=== PATIENT | female | born 1945 | race Caucasian/White ===

== ENCOUNTER 2016-12-12 16:55 | Inpatient (IN) ==
--- NOTE | 2016-12-12 17:27 | Emergency Department Report ---
General Adult HPI - General Stated complaint: [facility] Clearance Time Seen by Provider: 12/12/16 17:06 Source: patient, old records reviewed Mode of arrival: ambulatory Limitations: other (dementia) - History of Present Illness HPI narrative: 71-year-old female presents to the emergency department with the chief complaint of paranoia, agitation, and hallucinations. Patient has been having increasing symptoms rapidly over the past several months. Patient was seen and evaluated at [facility] on 11/28/2016 with a negative evaluation including head CT. [facility] management. She denies any pain or discomfort. Patient is agitated and history is limited due to this. - Related Data Home Medications Medication Instructions Recorded Confirmed Carbamide Peroxide Ear Drops 2 drops EACH EAR DAILY PRN 12/12/16 12/12/16 [Debrox] LORazepam [Ativan] 0.5 mg PO Q4H PRN 12/12/16 12/12/16 Quetiapine [Seroquel] 25 mg PO BIDLS 12/12/16 12/12/16 Quetiapine [Seroquel] 50 mg PO HS 12/12/16 12/12/16 Sertraline HCl [Zoloft] 50 mg PO QAM 12/12/16 12/12/16 Allergies Allergy/AdvReac Type Severity Reaction Status Date / Time strawberry Allergy Verified 12/12/16 17:18 Review of Systems Limitations: ROS unobtainable due to patient's medical condition PFSH Cognitive Impairment, Mood disorder, Paranoia Family History: Reviewed and Noncontributory. - Social History Smoking status: Former smoker Substance use type: does not use Alcohol intake frequency: does not drink Physical Exam - Limitations Limitations: other (Dementia) - General General appearance: alert, in no apparent distress - Normal Exams: Head:: Normocephalic without trauma Eyes:: Pupils are PERRLA w/ EOMI, No scleral icterus, irritation, or foreign bodies noted ENMT:: No facial trauma, nasal exudates, pharyngeal erythema, or exudates are noted Dental: No fractured, loose, or missing teeth noted Neck:: Full range of motion, without adenopathy, JVD, bruits or thyromegaly Chest/Respirations:: Clear all wood, with good airflow, and symmetry bilaterally Cardiovascular:: Regular rate and rhythm, without murmur or gallop, Pulses 2+ all extremities, capillary refill, <2 seconds all extremities Abdomen:: Bowel sounds positive, soft, non-tender, non-distended, no hepatosplenomegaly, masses or bruits noted Lymphatic:: No lymphadenopathy, or lymphedema noted Musculoskeletal:: No tenderness, or deformity noted, good range of motion, all extremities Integumentary:: No rashes, hives, or bruising noted, hair and nails, without abnormality Neurological:: Patient is alert (Alert and oriented x 1-2. No focal deficit. Does not answer most questions. ) Psychiatric:: Patient exhibits (Agitated. ) Course Vital Signs Blood Pressure 173/81 H 12/12/16 16:55 Temperature 98.0 F 12/14/16 15:40 Pulse Rate 105 H 12/14/16 15:40 Respiratory Rate 18 12/14/16 15:40 Blood Pressure 146/79 H 12/14/16 15:40 Pulse Oximetry 98 12/14/16 15:40 Medical Decision Making - [facility] Narrative Medical decision making narrative: Patient is frequently pacing and has difficulty remaining still. She is given Haldol 5 mg IM 1 after discussion with her medical power of ip technology transactions attorney vernon Moya. Vernon Moya is in agreement with the current plan of management. Patient will have a repeat EKG, chest x-ray, UA and any other testing deemed medically necessary in generations once the sedation has taken effect and patient is more calm. Full set of vital signs will be completed there as well when patient is more co-operative. The patient's slightly elevated blood pressure is felt to be secondary to agitation. Patient is accepted by Dr. Pan in generations and is in agreement with the current plan of management and will complete the workup as indicated in generations. Family is in agreement with the current plan of management. Patient is admitted to the hospital in improved condition. No further orders from accepting physician who is in agreement with the current plan of management. - Differential Diagnosis psychoses, anxiety, metabolic disorder, UTI - Lab Data Result diagrams: 12/12/16 18:17 12/12/16 18:17 Lab Results 12/12/16 12/12/16 12/12/16 Range/Units 18:17 18:17 18:17 WBC 6.5 (4.5-11.0) T/MM3 RBC 4.69 (4.00-5.20) M/MM3 Hgb 14.1 (12-16) GM/DL Hct 42.4 (36-46) % MCV 90.4 (80-100) UM3 MCH 30.1 (26-34) UUG MCHC 33.3 (31-37) GM/DL RDW Std Deviation 42.1 (36.9-50.2) FL Plt Count 237 (130-400) T/MM3 MPV 10.4 (9.4-12.4) UM3 Immature Gran % (Auto) 0.2 (0.0-0.5) % Neut % (Auto) 67.7 H (33-66) % Lymph % (Auto) 24.8 (23-45) % [place] % (Auto) 5.1 (0-9.0) % Eos % (Auto) 1.7 (0-4) % Baso % (Auto) 0.5 (0-2) % Neut # (Auto) 4.4 (1.8-7.7) T/MM3 Lymph # (Auto) 1.6 (1-4.8) T/MM3 [place] # (Auto) 0.3 (0-0.8) T/MM3 Eos # (Auto) 0.1 (0-0.5) T/MM3 Baso # (Auto) 0.0 (0-0.2) T/MM3 Abs Immat Gran (auto) 0.01 (0.00-0.03) T/MM3 Turbidity < 20 (0-20) Sodium 138 (134-144) MEQ/L Potassium 3.7 (3.6-5) MEQ/L Chloride 99 (98-107) MEQ/L Carbon Dioxide 27 (22-30) MEQ/L Anion Gap 12 (5-15) MEQ/L BUN 13.0 (7-17) MG/DL Creatinine 0.7 (0.7-1.2) MG/DL GFR Calculation 82 BUN/Creatinine Ratio 19 (6-26) RATIO Glucose 100 (65-110) MG/DL Calculated Osmolality 266 (261-280) MOSM/KG Calcium 9.2 (8.4-10.2) MG/DL Total Bilirubin 0.70 (0.20-1.30) MG/DL Icterus Index < 2 (0-7) AST 49 H (14-36) U/L ALT 54 H (9-52) U/L Alkaline Phosphatase 66 (38-126) U/L Troponin I 0.035 (0-0.12) ng/ml Total Protein 7.8 (6.3-8.2) G/DL Albumin 4.5 (3.5-5.0) G/DL Globulin 3.3 (2.4-3.6) G/DL Albumin/Globulin Ratio 1.4 (1.1-2.2) RATIO Prealbumin 15.9 L (17.6-36.0) MG/DL Specimen Hemolysis < 15 (0-25) - Radiology Data CXR - To be obtained in [facility] when patient is able to comply. - EKG Data EKG #1 EKG results narrative: Sinus tachycardia. Frequent PVC. No STEMI. Heart rate 106 bpm. Disposition Clinical Impression: Acute psychosis Disposition: 64 To [facility] Condition: Stable Time of Disposition: 18:30 (Admit. Dr. Pan. ) - Seen By: physician
[2016-12-12] MEDS ORDERED: HALOPERIDOL 5 MG/ML INJECTION IM ONE (17:59)
[2016-12-12] MEDS ORDERED: CARBAMIDE PEROXIDE 6.5% EAR DROPS 15ml EACH EAR PRN (18:40)
[2016-12-12 21:45] VITALS: BMI 21.5
[2016-12-12] MEDS: QUETIAPINE 50 MG TABLET PO SCH (23:26)
--- NOTE | 2016-12-13 07:47 | History & Physical Report ---
<RanchoShruthi D - Last Filed: 12/13/16 07:43> History of Present Illness Date: 12/13/16 Chief complaint: paranoia HPI: Margie Zhang is a 71 y/o woman admitted to [facility] on 12/12/16 for further evaluation and treatment of increasing paranoid behavior with hallucinations, thinking people are going to hurt her and that staff was stealing her things. The patient was markedly confused, unable to be redirected, and was therefore unable to participate in the interview. Per chart review, she's also had decreased appetite, pacing, and has been exit seeking. She currently resides in an assisted living memory care unit (admitted there on 12/03/16). Her memory reportedly has been failing at a remarkable rate. She was assessed at [facility] on where w/u was negative with WBC of 6.9, hgb 14.2, Na 136, K 3.4, BUN 14, Cr 0.79, ALT 18, AST 25, TSH 1.03, neg UA, EKG sinus tach with occ PVC, negative CXR and negative CT (with exception of chronic small vessel changes). Prior to this hospitalization she was not on any medications at home. The patient was screened at [facility] on 12/12/16 and d/t extreme agitation received Haldol 5 mg IM. Repeat labs here were normal except for mildly elevated LFTs. Since that time she was sleeping comfortably, but she awakened easily this morning. She was in no acute distress, spoke quickly, and needed very frequent redirection. She was unable to answer questions - most of her response was "OK" to ROS. She was slightly unsteady on her feet, and became slightly upset when staff helped her get situated on the toilet. Review of Systems ROS unobtainable: due to mental status PFSH JUNIOR Dementia Surgical History: Deny any surgical history Family History: a parent had dementia - Social History Smoking status: Former smoker (distant use) Alcohol intake frequency: holidays/special occasions only Current occupational status: retired Previous occupational history: teacher Current residence: Assisted Living Social history: PCP - Dr. Hammad Gutierrez Used to walk "7 miles" per day Medications Home Medications Medication Instructions Recorded Confirmed Type Carbamide Peroxide Ear Drops 2 drops EACH EAR DAILY PRN 12/12/16 12/12/16 History [Debrox] LORazepam [Ativan] 0.5 mg PO Q4H PRN 12/12/16 12/12/16 History Quetiapine [Seroquel] 25 mg PO BIDLS 12/12/16 12/12/16 History Quetiapine [Seroquel] 50 mg PO HS 12/12/16 12/12/16 History Sertraline HCl [Zoloft] 50 mg PO QAM 12/12/16 12/12/16 History Allergies Allergy/AdvReac Type Severity Reaction Status Date / Time strawberry Allergy Verified 12/12/16 17:18 Exam Vital Signs: Temperature 98.0 F 12/12/16 20:17 Pulse Rate 97 12/12/16 21:30 Respiratory Rate 18 12/12/16 21:30 Blood Pressure 168/71 H 12/12/16 20:17 Pulse Oximetry 97 12/12/16 21:30 Height/Weight/BMI: Height 1.57 m Weight 53.5 kg Body Mass Index 21.5 - Constitutional Present: well nourished, well developed, thin - Routine HEENT Exam Eye: Present: PERRL. Absent: conjunctival icterus, scleral injection ENT: Present: oropharynx clear - Routine Neck Exam Present: supple - Routine Respiratory Exam Present: CTA bilaterally - Routine Cardiovascular Exam Present: RRR, S1, S2 - Routine Abdominal Exam Present: soft, normoactive bowel sounds, non tender - Routine Extremities Exam Present: no edema - Routine Skin Exam Present: intact, dry, warm - Routine Neurological Exam Present: alert, CN II-XII intact (grossly), moving all extremities, normal speech. Absent: oriented X3 (self), facial asymmetry, tremors - Routine Psychiatric Exam Absent: normal thought process Results - Labs CBC & Chem 7: 12/12/16 18:17 12/12/16 18:17 Assessment and Plan (1) Acute psychosis Current visit: Yes Status: Acute Assessment and Plan: IMPRESSION Acute psychosis - Paranoia with delusions Mildly elevated LFTs Elevated BP (poss r/t agitation) Dementia JUNIOR PLAN Agree with admission. Labs reviewed and compared with outside records - mild acute elevations in AST/ ALT - monitor - could be r/t med effect since all meds are new to her. BP was elevated last night, though this is when she was agitated - monitor this over the next 24-48 hours to see if she might need an antihypertensive. Check Vit B12 and prealbumin. Provide safe/supportive environment. Medically stable for [facility] activities. code status in chart - DNR - will need to clarify with family. Resuscitation Status: Do Not Resuscitate Hospital Course Summary Disclaimer: The visit summary below is not to be considered part of the above Progress Note. Hospital Course: 12/13/16 08:03 IMPRESSION Acute psychosis - Paranoia with delusions Mildly elevated LFTs Elevated BP (poss r/t agitation) Dementia JUNIOR PLAN Agree with admission. Labs reviewed and compared with outside records - mild acute elevations in AST/ ALT - monitor - could be r/t med effect since all meds are new to her. BP was elevated last night, though this is when she was agitated - monitor this over the next 24-48 hours to see if she might need an antihypertensive. Check Vit B12 and prealbumin. Provide safe/supportive environment. Medically stable for [facility] activities. code status in chart - DNR - will need to clarify with family. <Edgar Daniels IV - Last Filed: 12/13/16 18:07> History of Present Illness Date: 12/13/16 [facility] Patient Stated Medical History Dementia Yes Exam Vital Signs: Temperature 98.1 F 12/13/16 16:00 Pulse Rate 57 L 12/13/16 16:00 Respiratory Rate 18 12/13/16 16:00 Blood Pressure 195/85 H 12/13/16 16:00 Pulse Oximetry 97 12/13/16 16:00 Height/Weight/BMI: Height 5 ft 2 in Weight 53.5 kg Body Mass Index 21.5 Results - Labs CBC & Chem 7: 12/12/16 18:17 12/12/16 18:17 Assessment and Plan (1) Acute psychosis Current visit: Yes Status: Acute Assessment and Plan: I have independently interviewed and examined the patient. I have reviewed the medical record. The plan has been discussed and formulated with LUBRICATOR GRANULATOR as above with the additions below. This is a 71-year-old woman paranoid delusions. She got 5 mg haldol in the ER last night and slept, but has been very active and difficult to direct since awakening, per nurse. Patient did not want to be examined or answer questions. Information is obtained from staff and medical record. The patient wanted staff to get her a phone book. Nurse says she has been complaining that staff is stealing from her. This is a similar to her complaint about the [facility] memory care unit she was admitted to 12/03/16. Nurse says patient's d-i-l has called and says the patient had not seen a doctor in 30 years and that the patient's protected her by keeping family away when she was not doing well. Patient is well developed, well nourished. No rashes noted. No edema present. Her gait is unsteady - nurse says it is worse b/c pt just got 25 of Seroquel. Recheck LFTs in a few days. UA is pending. May need to straight cath. Patient's BP has been variable. This may be d/t agitation. Monitor. Agree with admission to [facility]. Hospital Course Summary Disclaimer: The visit summary below is not to be considered part of the above Progress Note.
[2016-12-13] MEDS: SERTRALINE 50 MG TABLET PO SCH (08:58)
[2016-12-13] MEDS: LORazepam 0.5 MG TABLET PO PRN (10:23)
[2016-12-13] MEDS: HALOPERIDOL 0.5 MG TABLET PO PRN (10:23)
[2016-12-13] MEDS ORDERED: QUETIAPINE 25 MG TABLET PO SCH (12:00)
--- NOTE | 2016-12-13 12:40 | 24 Hour Neuropsychiatic Eval ---
Date of Admission: 12/12/16 18:38 Chief complaint: "I'm fine" History of Present Illness: HPI: 71 Y/O CF with a hx of dementia sent from [place] for increasing confusion and paranoia. Reportedly pt was irritable and aggressive at times and believing things were being stolen from her. Pt recently was placed in memory care and nursing reports family stated her memory has been failing for some time. On face to face the pt is pleasant but pacing. She is only oriented x 1 and is not able or willing to participate in the interview. PSYCH ROS: PT is not able to participate in the interview. She does not appear to be in any distress but is pacing. PAST PSYCH: Unclear at this time. Pt was admitted on Seroquel and Zoloft. Family reports she has not seen a doctor for many years COUNT INCLUDES THE [facility] Patient Stated Medical History Dementia Yes Surgical History: Deny any surgical history - Social History Smoking status: Former smoker (distant use) Current residence: Assisted Living Review of Systems ROS unobtainable: due to mental status Mental Status Exam Vitals: Last Vital Signs Temp 98.2 F 12/13/16 08:00 Pulse 103 H 12/13/16 08:00 Resp 16 12/13/16 08:00 BP 138/93 H 12/13/16 08:00 Pulse Ox 99 12/13/16 08:00 Height: 1.57 m Weight: 53.5 kg - Mental Status Exam Muscle Strength/Tone: Normal Dressing: Casual Grooming: Good Attitude: Guarded Motor Activity: Normal Eye Contact: Poor Speech: Slowed Volume: Soft Rhythm: Mumbled Orientation: Oriented to person Mood: Neutral Affect: Anxious Rate of Thoughts: Delayed Thought Organization: Confused Associations: Flight of Ideas Abstract Reasoning: Poor abstract reasoning Thought Content: Paranoia Perception/Psychotic: Perception Normal Language: Naming Impaired Fund of Knowledge: Poor fund of knowledge Memory: Poor-immediate, Poor-recent, Poor-remote Suicidal Ideation: None Homicidal Ideation: None Insight: Poor Judgement: Poor Impulse Control: Poor - Laboratory Result Diagrams: 12/12/16 18:17 12/12/16 18:17 Assessment and Plan (1) Major neurocognitive disorder Problem details: with behavioral disturbance most likely Alzheimers Type Current visit: Yes Status: Acute Continue to evaluate and stabilize. Continue home meds. Collateral from family. Will collect UA
[2016-12-13] MEDS ORDERED: QUETIAPINE 25 MG TABLET PO ONE (16:38)
[2016-12-13] MEDS: QUETIAPINE 25 MG TABLET PO SCH (16:40)
[2016-12-13] MEDS: HALOPERIDOL 5 MG/ML INJECTION IM PRN (19:30)
[2016-12-13] MEDS: QUETIAPINE 50 MG TABLET PO SCH (19:47)
[2016-12-14] MEDS: QUETIAPINE 25 MG TABLET PO SCH ×2 (08:19→14:37)
[2016-12-14] MEDS: SERTRALINE 50 MG TABLET PO SCH (08:19)
[2016-12-14] MEDS: HALOPERIDOL 0.5 MG TABLET PO PRN ×2 (08:20→21:35)
--- NOTE | 2016-12-14 12:18 | Neuropsych Progress Note ---
[facility] Subjective Date: 12/14/16 - Sujective/Severity of Illness Medications: Carbamide Peroxide (Debrox) 2 drops EACH EAR DAILY PRN PRN Reason: PRN orders Cephalexin HCl (Keflex) 500 mg PO TID [facility] Stop: 12/17/16 14:59 Haloperidol (Haldol) 0.5 mg PO Q6H PRN PRN Reason: Extreme agitation Last Admin: 12/14/16 08:20 Dose: 0.5 mg Haloperidol Lactate (Haldol) 0.5 mg IM Q6H PRN PRN Reason: Extreme agitation Last Admin: 12/13/16 19:30 Dose: 0.5 mg Lorazepam (Ativan) 0.5 mg PO Q6H PRN PRN Reason: Extreme agitation Last Admin: 12/13/16 10:23 Dose: 0.5 mg Lorazepam (Ativan Inj) 0.5 mg IM Q6H PRN PRN Reason: Extreme agitation Last Admin: 12/13/16 19:30 Dose: 0.5 mg Quetiapine Fumarate (Seroquel) 50 mg PO HS [facility] Last Admin: 12/13/16 19:47 Dose: 50 mg Quetiapine Fumarate (Seroquel) 25 mg PO 0900,1500 [facility] Last Admin: 12/14/16 08:19 Dose: 25 mg Sertraline HCl (Zoloft) 50 mg PO QAM [facility] Last Admin: 12/14/16 08:19 Dose: 50 mg Subjective: Pt seen and chart examined. Nursing reports patient was given Haldol and Ativan last night IM as she was pacing and exit seeking and was difficult to redirect. Slept well and has a good appetite. On face to face the pt is confused. She is only oriented to self. She is pacing and is not able to answer questions. She does not appear to be in any pain. Tolerating meds Start Time: 11:15 Stop Time: 11:30 Mental Status Exam Vitals: Last Vital Signs Temp 98.2 F 12/14/16 08:00 Pulse 105 H 12/14/16 08:00 Resp 16 12/14/16 08:00 BP 137/86 12/14/16 08:00 Pulse Ox 92 12/14/16 08:00 Height: 1.57 m Weight: 53.5 kg - Mental Status Exam Muscle Strength/Tone: Normal Dressing: Casual Grooming: Good Attitude: Guarded Motor Activity: Normal Eye Contact: Poor Speech: Slowed Volume: Soft Rhythm: Mumbled Orientation: Oriented to person Mood: Neutral Rate of Thoughts: Delayed Thought Organization: Confused Associations: Flight of Ideas Abstract Reasoning: Poor abstract reasoning Thought Content: Paranoia Perception/Psychotic: Perception Normal Language: Naming Impaired Fund of Knowledge: Poor fund of knowledge Memory: Poor-immediate, Poor-recent, Poor-remote Suicidal Ideation: None Homicidal Ideation: None Insight: Poor Judgement: Poor Impulse Control: Poor - Laboratory Result Diagrams: 12/12/16 18:17 12/12/16 18:17 Laboratory Results - last 24 hr 12/13/16 18:09 Ur Collection Type Urine, catheter Urine Color Yellow Urine Clarity Clear Urine pH 6.0 Ur Specific [place] 1.010 L Urine Protein Negative Urine Glucose (UA) Negative Urine Ketones 2+ A Urine Occult Blood Trace-lysed Urine Nitrate Negative Urine Bilirubin Negative Urine Urobilinogen 0.2 Ur Leukocyte Esterase 2+ A Urine RBC 1-3 Urine WBC 5-10 H Ur Squamous Epith Cells 10-20 Ur Transition Epith Cell 0-1 Urine Bacteria 1+ H Ur Culture Indicated? Cult not indicated Assessment and Plan (1) Major neurocognitive disorder Problem details: with behavioral disturbance most likely Alzheimers Type Current visit: Yes Status: Acute Hospital Course Summary Disclaimer: The visit summary below is not to be considered part of the above Progress Note. Hospital Course: 12/13/16 08:03 IMPRESSION Acute psychosis - Paranoia with delusions Mildly elevated LFTs Elevated BP (poss r/t agitation) Dementia JUNIOR PLAN Agree with admission. Labs reviewed and compared with outside records - mild acute elevations in AST/ ALT - monitor - could be r/t med effect since all meds are new to her. BP was elevated last night, though this is when she was agitated - monitor this over the next 24-48 hours to see if she might need an antihypertensive. Check Vit B12 and prealbumin. Provide safe/supportive environment. Medically stable for [facility] activities. code status in chart - DNR - will need to clarify with family. 12/14/16 12:17 Remains confused and agitated at times. Continue current care and will discuss with family use of Depakote
[2016-12-14] MEDS ORDERED: CEFTRIAXONE 1 G INJECTION IM ONE (14:22)
[2016-12-14] MEDS ORDERED: LIDOCAINE 1% (10mg/ml) 2mL INJ PF SDV ID ONE (15:01)
[2016-12-14] MEDS: QUETIAPINE 50 MG TABLET PO SCH ×2 (18:24→21:24)
[2016-12-14] MEDS: LORazepam 0.5 MG TABLET PO PRN (21:35)
[2016-12-15] MEDS: SERTRALINE 50 MG TABLET PO SCH (08:15)
[2016-12-15] MEDS: QUETIAPINE 25 MG TABLET PO SCH ×2 (08:15→15:35)
[2016-12-15] MEDS: HALOPERIDOL 0.5 MG TABLET PO PRN (08:18)
[2016-12-15] MEDS ORDERED: INFLUENZA VAC High Dose 2017-18 (Fluzone HD*) (>=65yo) 0.5ml IM ONE (13:24)
[2016-12-15] MEDS ORDERED: PNEUMOCOCCAL 13 VACCINE 0.5ml INJECTION IM ONE (13:24)
[2016-12-15] MEDS ORDERED: INFLUENZA VAC. INJ. ADMIN CHARGE INJ ONE (15:08)
[2016-12-15] MEDS ORDERED: PNEUMOCOCCAL VAC ADMIN CHARGE INJ ONE (15:09)
[2016-12-15] MEDS: HALOPERIDOL 5 MG/ML INJECTION IM PRN (17:37)
[2016-12-15] MEDS: QUETIAPINE 50 MG TABLET PO SCH (18:55)
--- NOTE | 2016-12-15 21:17 | Neuropsych Progress Note ---
[facility] Subjective Date: 12/15/16 - Sujective/Severity of Illness Medications: Carbamide Peroxide (Debrox) 2 drops EACH EAR DAILY PRN PRN Reason: For ear wax removal Haloperidol (Haldol) 0.5 mg PO Q6H PRN PRN Reason: Extreme agitation Last Admin: 12/15/16 08:18 Dose: 0.5 mg Haloperidol Lactate (Haldol) 0.5 mg IM Q6H PRN PRN Reason: Extreme agitation Last Admin: 12/15/16 17:37 Dose: 0.5 mg Lorazepam (Ativan) 0.5 mg PO Q6H PRN PRN Reason: Extreme agitation Last Admin: 12/14/16 21:35 Dose: 0.5 mg Lorazepam (Ativan Inj) 0.5 mg IM Q6H PRN PRN Reason: Extreme agitation Last Admin: 12/15/16 17:36 Dose: 0.5 mg Metoprolol Tartrate (Lopressor) 12.5 mg PO BIDWM [facility] Last Admin: 12/15/16 18:47 Dose: 12.5 mg Quetiapine Fumarate (Seroquel) 50 mg PO HS [facility] Last Admin: 12/15/16 18:55 Dose: 50 mg Quetiapine Fumarate (Seroquel) 25 mg PO 0900,1500 [facility] Last Admin: 12/15/16 15:35 Dose: 25 mg Sertraline HCl (Zoloft) 50 mg PO QAM [facility] Last Admin: 12/15/16 08:15 Dose: 50 mg Subjective: Pt seen and chart examined. Nursing reports pt continues to pace and is active and is difficult to redirect at times. On face to face the pt remains confused. She is seen pacing and is only oriented to self. She does not respond to questions. She does not appear to be in any pain. Tolerating meds Start Time: 17:15 Stop Time: 17:30 Mental Status Exam Vitals: Last Vital Signs Temp 98.7 F 12/15/16 08:00 Pulse 98 12/15/16 08:00 Resp 16 12/15/16 08:00 BP 157/91 H 12/15/16 08:00 Pulse Ox 97 12/15/16 08:00 Height: 1.57 m Weight: 53.5 kg - Mental Status Exam Muscle Strength/Tone: Normal Dressing: Casual Grooming: Good Attitude: Guarded Motor Activity: Normal Eye Contact: Poor Speech: Slowed Volume: Soft Rhythm: Mumbled Orientation: Oriented to person Mood: Neutral Rate of Thoughts: Delayed Thought Organization: Confused Associations: Flight of Ideas Abstract Reasoning: Poor abstract reasoning Thought Content: Paranoia Perception/Psychotic: Perception Normal Language: Naming Impaired Fund of Knowledge: Poor fund of knowledge Memory: Poor-immediate, Poor-recent, Poor-remote Suicidal Ideation: None Homicidal Ideation: None Insight: Poor Judgement: Poor Impulse Control: Poor - Laboratory Result Diagrams: 12/12/16 18:17 12/12/16 18:17 Assessment and Plan (1) Major neurocognitive disorder Problem details: with behavioral disturbance most likely Alzheimers Type Current visit: Yes Status: Acute Hospital Course Summary Disclaimer: The visit summary below is not to be considered part of the above Progress Note. Hospital Course: 12/13/16 08:03 IMPRESSION Acute psychosis - Paranoia with delusions Mildly elevated LFTs Elevated BP (poss r/t agitation) Dementia JUNIOR PLAN Agree with admission. Labs reviewed and compared with outside records - mild acute elevations in AST/ ALT - monitor - could be r/t med effect since all meds are new to her. BP was elevated last night, though this is when she was agitated - monitor this over the next 24-48 hours to see if she might need an antihypertensive. Check Vit B12 and prealbumin. Provide safe/supportive environment. Medically stable for [facility] activities. code status in chart - DNR - will need to clarify with family. 12/14/16 12:17 Remains confused and agitated at times. Continue current care and will discuss with family use of Depakote 12/15/16 21:17 Remains confused. Increase Seroquel to 50mg PO TID.
[2016-12-16] MEDS: QUETIAPINE 50 MG TABLET PO SCH ×4 (03:35→19:26)
[2016-12-16] MEDS: SERTRALINE 50 MG TABLET PO SCH (08:10)
--- NOTE | 2016-12-16 09:29 | Progress Note ---
- Date 12/16/16 Subjective: Margie had finished most of her breakfast and was pacing the halls this morning; yesterday she was exit seeking and intrusive with other patients. Staff has been worried about her safety. This morning, she followed directions and sat down to permit assessment. She did not answer questions appropriately. She commented "I bet you know how" - referring how to make a bed. She slept over 9 hrs last night. Objective Vital signs: Temperature 97.7 F 12/16/16 08:00 Pulse Rate 90 12/16/16 08:00 Respiratory Rate 16 12/16/16 08:00 Blood Pressure 100/63 12/16/16 08:00 Pulse Oximetry 97 12/15/16 22:31 Height/Weight/BMI: Height 1.57 m Weight 53.5 kg Body Mass Index 21.5 - Constitutional Present: no acute distress, thin - Routine HEENT Exam Head: Present: normocephalic - Routine Respiratory Exam Present: CTA bilaterally - Routine Cardiovascular Exam Present: RRR, S1, S2, murmur (1-2/6) - Routine Abdominal Exam Present: soft, normoactive bowel sounds, non distended, non tender - Routine Extremities Exam Present: no edema - Routine Skin Exam Present: intact, dry, warm - Routine Neurological Exam Present: alert - Routine Psychiatric Exam Present: paranoid (hx). Absent: normal affect, normal thought process Results - Labs CBC & Chem 7: 12/12/16 18:17 12/16/16 08:10 Assessment and Plan (1) Acute psychosis Current visit: Yes Status: Acute Assessment and Plan: IMPRESSION Acute psychosis - Paranoia with delusions Mildly elevated LFTs - RESOLVED Elevated BP (poss r/t agitation) - IMPROVING Dementia JUNIOR PLAN CMP repeated - LFTs back to normal. Vit B12 was 313 which is low-normal. Start replacement. Prealbumin also low at 15.9 - will order nutritional supplements. VS labile ranging 100/63 this am but was 195/85 on 12/13 - cont to monitor. Dr. Romo's notes reviewed - Seroquel increased. Hospital Course Summary Disclaimer: The visit summary below is not to be considered part of the above Progress Note. Hospital Course: 12/13/16 08:03 IMPRESSION Acute psychosis - Paranoia with delusions Mildly elevated LFTs Elevated BP (poss r/t agitation) Dementia JUNIOR PLAN Agree with admission. Labs reviewed and compared with outside records - mild acute elevations in AST/ ALT - monitor - could be r/t med effect since all meds are new to her. BP was elevated last night, though this is when she was agitated - monitor this over the next 24-48 hours to see if she might need an antihypertensive. Check Vit B12 and prealbumin. Provide safe/supportive environment. Medically stable for [facility] activities. code status in chart - DNR - will need to clarify with family. 12/14/16 12:17 Remains confused and agitated at times. Continue current care and will discuss with family use of Depakote 12/15/16 21:17 Remains confused. Increase Seroquel to 50mg PO TID. 12/16/16 IMPRESSION Acute psychosis - Paranoia with delusions Mildly elevated LFTs - RESOLVED Elevated BP (poss r/t agitation) - IMPROVING Dementia JUNIOR PLAN CMP repeated - LFTs back to normal. Vit B12 was 313 which is low-normal. Start replacement. Prealbumin also low at 15.9 - will order nutritional supplements. VS labile ranging 100/63 this am but was 195/85 on 12/13 - cont to monitor.
[2016-12-16] MEDS: HALOPERIDOL 0.5 MG TABLET PO PRN (09:47)
[2016-12-16] MEDS: CYANOCOBALAMIN (B-12) 500mcg TABLET PO SCH (16:08)
--- NOTE | 2016-12-16 17:09 | Neuropsych Progress Note ---
[facility] Subjective Date: 12/16/16 - Sujective/Severity of Illness Medications: Carbamide Peroxide (Debrox) 2 drops EACH EAR DAILY PRN PRN Reason: For ear wax removal Cyanocobalamin (Vit. B-12) 500 mcg PO DAILY [facility] Last Admin: 12/16/16 16:08 Dose: 500 mcg Haloperidol (Haldol) 0.5 mg PO Q6H PRN PRN Reason: Extreme agitation Last Admin: 12/16/16 09:47 Dose: 0.5 mg Haloperidol Lactate (Haldol) 0.5 mg IM Q6H PRN PRN Reason: Extreme agitation Last Admin: 12/15/16 17:37 Dose: 0.5 mg Lorazepam (Ativan) 0.5 mg PO Q6H PRN PRN Reason: Extreme agitation Last Admin: 12/14/16 21:35 Dose: 0.5 mg Lorazepam (Ativan Inj) 0.5 mg IM Q6H PRN PRN Reason: Extreme agitation Last Admin: 12/15/16 17:36 Dose: 0.5 mg Metoprolol Tartrate (Lopressor) 12.5 mg PO BIDWM [facility] Last Admin: 12/16/16 08:14 Dose: Not Given Quetiapine Fumarate (Seroquel) 50 mg PO TID [facility] Last Admin: 12/16/16 16:08 Dose: 50 mg Sertraline HCl (Zoloft) 50 mg PO QAM [facility] Last Admin: 12/16/16 08:10 Dose: 50 mg Subjective: Pt seen and chart examined. Nursing reports pt continues to pace today but it has been less and she is more redirectable. She did receive Haldol this AM. On face to face the pt is pleasant but confused. She is only oriented to self. Denies any pain. Tolerating meds Start Time: 17:15 Stop Time: 17:30 Mental Status Exam Vitals: Last Vital Signs Temp 97.7 F 12/16/16 08:00 Pulse 90 12/16/16 08:00 Resp 16 12/16/16 08:00 BP 100/63 12/16/16 08:00 Pulse Ox 97 12/15/16 22:31 Height: 1.57 m Weight: 53.5 kg - Mental Status Exam Muscle Strength/Tone: Normal Dressing: Casual Grooming: Good Attitude: Guarded Motor Activity: Normal Eye Contact: Poor Speech: Slowed Volume: Soft Rhythm: Mumbled Orientation: Oriented to person Mood: Neutral Rate of Thoughts: Delayed Thought Organization: Confused Associations: Flight of Ideas Abstract Reasoning: Poor abstract reasoning Thought Content: Paranoia Perception/Psychotic: Perception Normal Language: Naming Impaired Fund of Knowledge: Poor fund of knowledge Memory: Poor-immediate, Poor-recent, Poor-remote Suicidal Ideation: None Homicidal Ideation: None Insight: Poor Judgement: Poor Impulse Control: Poor - Laboratory Result Diagrams: 12/12/16 18:17 12/16/16 08:10 Laboratory Results - last 24 hr 12/16/16 08:10 Turbidity < 20 Sodium 142 Potassium 3.9 Chloride 103 Carbon Dioxide 32 H Anion Gap 7 BUN 21.0 H Creatinine 0.7 GFR Calculation 82 BUN/Creatinine Ratio 30 H Glucose 141 H Calculated Osmolality 278 Calcium 9.1 Total Bilirubin 0.70 Icterus Index < 2 AST 36 ALT 40 Alkaline Phosphatase 52 Total Protein 6.9 Albumin 3.8 Globulin 3.1 Albumin/Globulin Ratio 1.2 Specimen Hemolysis 16 Assessment and Plan (1) Major neurocognitive disorder Problem details: with behavioral disturbance most likely Alzheimers Type Current visit: Yes Status: Acute Hospital Course Summary Disclaimer: The visit summary below is not to be considered part of the above Progress Note. Hospital Course: 12/13/16 08:03 IMPRESSION Acute psychosis - Paranoia with delusions Mildly elevated LFTs Elevated BP (poss r/t agitation) Dementia JUNIOR PLAN Agree with admission. Labs reviewed and compared with outside records - mild acute elevations in AST/ ALT - monitor - could be r/t med effect since all meds are new to her. BP was elevated last night, though this is when she was agitated - monitor this over the next 24-48 hours to see if she might need an antihypertensive. Check Vit B12 and prealbumin. Provide safe/supportive environment. Medically stable for [facility] activities. code status in chart - DNR - will need to clarify with family. 12/14/16 12:17 Remains confused and agitated at times. Continue current care and will discuss with family use of Depakote 12/15/16 21:17 Remains confused. Increase Seroquel to 50mg PO TID. 12/16/16 IMPRESSION Acute psychosis - Paranoia with delusions Mildly elevated LFTs - RESOLVED Elevated BP (poss r/t agitation) - IMPROVING Dementia JUNIOR PLAN CMP repeated - LFTs back to normal. Vit B12 was 313 which is low-normal. Start replacement. Prealbumin also low at 15.9 - will order nutritional supplements. VS labile ranging 100/63 this am but was 195/85 on 12/13 - cont to monitor. 12/16/16 17:08 Remains confused but a little better today. Continue current care
[2016-12-16] MEDS: HALOPERIDOL 5 MG/ML INJECTION IM PRN (17:55)
[2016-12-17] MEDS: QUETIAPINE 50 MG TABLET PO SCH ×4 (04:58→20:06)
[2016-12-17] MEDS: SERTRALINE 50 MG TABLET PO SCH (09:55)
[2016-12-17] MEDS: CYANOCOBALAMIN (B-12) 500mcg TABLET PO SCH (09:55)
[2016-12-17] MEDS: LORazepam 0.5 MG TABLET PO PRN (12:42)
[2016-12-17] MEDS: HALOPERIDOL 5 MG/ML INJECTION IM PRN (18:54)
--- NOTE | 2016-12-17 19:55 | Neuropsych Progress Note ---
[facility] Subjective Date: 12/17/16 - Sujective/Severity of Illness Medications: Carbamide Peroxide (Debrox) 2 drops EACH EAR DAILY PRN PRN Reason: For ear wax removal Cyanocobalamin (Vit. B-12) 500 mcg PO DAILY [facility] Last Admin: 12/17/16 09:55 Dose: 500 mcg Haloperidol (Haldol) 0.5 mg PO Q6H PRN PRN Reason: Extreme agitation Last Admin: 12/16/16 09:47 Dose: 0.5 mg Haloperidol Lactate (Haldol) 0.5 mg IM Q6H PRN PRN Reason: Extreme agitation Last Admin: 12/17/16 18:54 Dose: 0.5 mg Lorazepam (Ativan) 0.5 mg PO Q6H PRN PRN Reason: Extreme agitation Last Admin: 12/17/16 12:42 Dose: 0.5 mg Lorazepam (Ativan Inj) 0.5 mg IM Q6H PRN PRN Reason: Extreme agitation Last Admin: 12/17/16 18:53 Dose: 0.5 mg Metoprolol Tartrate (Lopressor) 12.5 mg PO BIDWM [facility] Last Admin: 12/17/16 17:20 Dose: 12.5 mg Quetiapine Fumarate (Seroquel) 50 mg PO TID [facility] Last Admin: 12/17/16 14:28 Dose: 50 mg Sertraline HCl (Zoloft) 50 mg PO QAM [facility] Last Admin: 12/17/16 09:55 Dose: 50 mg Subjective: Patient seen and chart reviewed. Case discussed with treatment team. On interview, patient does not answer any of my questions logically but seems to be pleasantly confused. Nursing staff report she continues to be impulsive, pacing at times and exit- seeking. She requires frequent prompts and is somewhat resistant to meds though it is not clear if she understands what they are doing. Patient slept 9.75 hours overnight. VSS. Patient is eating well. Psychotropic PRNs required in the past 24 hours: multiple, both IM Ativan and Haldol. I spoke with patient's son/BARBARA Moya in [place]. He reports cognitive deficits ~ 10 years ago and then more sudden stepwise changes in past 2 years. He reports that his mother typically does not answer him logically. 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 She was quite physically active until just recently. He reports significant family history of dementia as well. Start Time: 14:40 Stop Time: 15:00 Mental Status Exam Vitals: Last Vital Signs Temp 97.4 F 12/17/16 16:00 Pulse 86 12/17/16 16:00 Resp 16 12/17/16 16:00 BP 115/76 12/17/16 16:00 Pulse Ox 99 12/17/16 16:00 Height: 1.57 m Weight: 53.5 kg - Mental Status Exam Muscle Strength/Tone: Normal Dressing: Casual Grooming: Good Attitude: Uncooperative Motor Activity: Other (frequently stands (at premorbid baseline), paces at times ) Eye Contact: Poor Speech: Slowed, Other (some expressive aphasia suspected) Volume: Soft Rhythm: Mumbled Orientation: Oriented to person Mood: Neutral (restless at times) Rate of Thoughts: Delayed Thought Organization: Confused Associations: Flight of Ideas, Illogical Abstract Reasoning: Poor abstract reasoning Thought Content: Paranoia Perception/Psychotic: Other (Unable to assess) Language: Naming Impaired Fund of Knowledge: Poor fund of knowledge Memory: Poor-immediate, Poor-recent, Poor-remote Suicidal Ideation: None Homicidal Ideation: None Insight: Poor Judgement: Poor Impulse Control: Poor - Laboratory Result Diagrams: 12/12/16 18:17 12/16/16 08:10 Assessment and Plan (1) Major neurocognitive disorder Problem details: mixed etiology (Alzheimer's and vascular), moderate, with behavioral disturbance Current visit: Yes Status: Acute Hospital Course Summary Disclaimer: The visit summary below is not to be considered part of the above Progress Note. Hospital Course: 12/13/16 08:03 IMPRESSION Acute psychosis - Paranoia with delusions Mildly elevated LFTs Elevated BP (poss r/t agitation) Dementia JUNIOR PLAN Agree with admission. Labs reviewed and compared with outside records - mild acute elevations in AST/ ALT - monitor - could be r/t med effect since all meds are new to her. BP was elevated last night, though this is when she was agitated - monitor this over the next 24-48 hours to see if she might need an antihypertensive. Check Vit B12 and prealbumin. Provide safe/supportive environment. Medically stable for [facility] activities. code status in chart - DNR - will need to clarify with family. 12/14/16 12:17 Remains confused and agitated at times. Continue current care and will discuss with family use of Depakote 12/15/16 21:17 Remains confused. Increase Seroquel to 50mg PO TID. 12/16/16 IMPRESSION Acute psychosis - Paranoia with delusions Mildly elevated LFTs - RESOLVED Elevated BP (poss r/t agitation) - IMPROVING Dementia JUNIOR PLAN CMP repeated - LFTs back to normal. Vit B12 was 313 which is low-normal. Start replacement. Prealbumin also low at 15.9 - will order nutritional supplements. VS labile ranging 100/63 this am but was 195/85 on 12/13 - cont to monitor. 12/16/16 17:08 Remains confused but a little better today. Continue current care 12/17/16 Psych: Continue current care though apppears patient continues to be impulsive, restless. Will again revisit use of Depakote with family, consider CT scan as she has not had one done per son.
[2016-12-18] MEDS: QUETIAPINE 50 MG TABLET PO SCH ×2 (08:08→15:22)
[2016-12-18] MEDS: CYANOCOBALAMIN (B-12) 500mcg TABLET PO SCH (08:08)
[2016-12-18] MEDS: SERTRALINE 50 MG TABLET PO SCH (08:08)
--- NOTE | 2016-12-18 16:51 | Neuropsych Progress Note ---
[facility] Subjective Date: 12/18/16 - Sujective/Severity of Illness Medications: Carbamide Peroxide (Debrox) 2 drops EACH EAR DAILY PRN PRN Reason: For ear wax removal Cyanocobalamin (Vit. B-12) 500 mcg PO DAILY [facility] Last Admin: 12/18/16 08:08 Dose: 500 mcg Haloperidol (Haldol) 0.5 mg PO Q6H PRN PRN Reason: Extreme agitation Last Admin: 12/16/16 09:47 Dose: 0.5 mg Haloperidol Lactate (Haldol) 0.5 mg IM Q6H PRN PRN Reason: Extreme agitation Last Admin: 12/17/16 18:54 Dose: 0.5 mg Lorazepam (Ativan) 0.5 mg PO Q6H PRN PRN Reason: Extreme agitation Last Admin: 12/17/16 12:42 Dose: 0.5 mg Lorazepam (Ativan Inj) 0.5 mg IM Q6H PRN PRN Reason: Extreme agitation Last Admin: 12/17/16 18:53 Dose: 0.5 mg Metoprolol Tartrate (Lopressor) 12.5 mg PO BIDWM [facility] Last Admin: 12/18/16 08:08 Dose: 12.5 mg Quetiapine Fumarate (Seroquel) 50 mg PO TID [facility] Last Admin: 12/18/16 15:22 Dose: 50 mg Sertraline HCl (Zoloft) 50 mg PO QAM [facility] Last Admin: 12/18/16 08:08 Dose: 50 mg Subjective: Patient seen and chart reviewed. Case discussed with treatment team. On interview, patient does not answer any of my questions logically but seems to be pleasantly confused. Nursing staff report she continues to be impulsive and exit-seeking. She requires frequent prompts and is somewhat resistant to meds though it is not clear if she understands what they are doing. Patient slept well overnight. VSS. Patient is eating well. Psychotropic PRNs required in the past 24 hours: Haldol. Start Time: 14:20 Stop Time: 14:40 Mental Status Exam Vitals: Last Vital Signs Temp 98.6 F 12/18/16 08:00 Pulse 85 12/18/16 08:00 Resp 18 12/18/16 08:00 BP 148/91 H 12/18/16 08:00 Pulse Ox 92 12/18/16 08:00 Height: 1.57 m Weight: 53.5 kg - Mental Status Exam Muscle Strength/Tone: Normal Dressing: Casual Grooming: Good Attitude: Uncooperative Motor Activity: Other (frequently stands (at premorbid baseline), paces at times ) Eye Contact: Poor Speech: Slowed, Other (some expressive aphasia suspected) Volume: Soft Rhythm: Mumbled Orientation: Oriented to person Mood: Neutral (restless at times) Rate of Thoughts: Delayed Thought Organization: Confused Associations: Flight of Ideas, Illogical Abstract Reasoning: Poor abstract reasoning Thought Content: Paranoia Perception/Psychotic: Other (Unable to assess) Language: Naming Impaired Fund of Knowledge: Poor fund of knowledge Memory: Poor-immediate, Poor-recent, Poor-remote Suicidal Ideation: None Homicidal Ideation: None Insight: Poor Judgement: Poor Impulse Control: Poor - Laboratory Result Diagrams: 12/12/16 18:17 12/16/16 08:10 Assessment and Plan (1) Major neurocognitive disorder Problem details: mixed etiology (Alzheimer's and vascular), moderate, with behavioral disturbance Current visit: Yes Status: Acute Hospital Course Summary Disclaimer: The visit summary below is not to be considered part of the above Progress Note. Hospital Course: 12/13/16 08:03 IMPRESSION Acute psychosis - Paranoia with delusions Mildly elevated LFTs Elevated BP (poss r/t agitation) Dementia JUNIOR PLAN Agree with admission. Labs reviewed and compared with outside records - mild acute elevations in AST/ ALT - monitor - could be r/t med effect since all meds are new to her. BP was elevated last night, though this is when she was agitated - monitor this over the next 24-48 hours to see if she might need an antihypertensive. Check Vit B12 and prealbumin. Provide safe/supportive environment. Medically stable for [facility] activities. code status in chart - DNR - will need to clarify with family. 12/14/16 12:17 Remains confused and agitated at times. Continue current care and will discuss with family use of Depakote 12/15/16 21:17 Remains confused. Increase Seroquel to 50mg PO TID. 12/16/16 IMPRESSION Acute psychosis - Paranoia with delusions Mildly elevated LFTs - RESOLVED Elevated BP (poss r/t agitation) - IMPROVING Dementia JUNIOR PLAN CMP repeated - LFTs back to normal. Vit B12 was 313 which is low-normal. Start replacement. Prealbumin also low at 15.9 - will order nutritional supplements. VS labile ranging 100/63 this am but was 195/85 on 12/13 - cont to monitor. 12/16/16 17:08 Remains confused but a little better today. Continue current care 12/17/16 Psych: Continue current care though apppears patient continues to be impulsive, restless. Will again revisit use of Depakote with family, consider CT scan as she has not had one done per son. 12/18/16 Psych: Patient was aggressive/resistive with cares last night. Will increase Seroquel to 50mg PO BID (AM, afternoon) and 100mg PO q HS to target evening agitation.
[2016-12-18] MEDS: HALOPERIDOL 0.5 MG TABLET PO PRN (17:16)
[2016-12-18] MEDS: LORazepam 0.5 MG TABLET PO PRN (17:16)
[2016-12-18] MEDS: QUETIAPINE 100 MG TABLET PO SCH ×2 (19:51→20:38)
--- NOTE | 2016-12-19 09:38 | Progress Note ---
- Date 12/19/16 Subjective: Avni was seen during breakfast. She responded appropriately to initial questions and denied any new concerns or complaints. She paces frequently. She is occasionally resistive with cares; moreso in last couple of days. Oral intake has been fairly stable (50-100% of meals). Objective Vital signs: Temperature 97.6 F 12/19/16 08:00 Pulse Rate 85 12/19/16 08:00 Respiratory Rate 16 12/19/16 08:00 Blood Pressure 142/89 H 12/19/16 08:00 Pulse Oximetry 98 12/19/16 08:00 Height/Weight/BMI: Height 1.57 m Weight 53.9 kg Body Mass Index 21.5 - Constitutional Present: no acute distress, well nourished, well developed, thin - Routine HEENT Exam Eye: Absent: conjunctival icterus ENT: Present: mucous membranes moist, oropharynx clear - Routine Respiratory Exam Present: CTA bilaterally - Routine Cardiovascular Exam Present: RRR, S1, S2 - Routine Abdominal Exam Present: soft, non tender - Routine Extremities Exam Present: no edema, pulses intact - Routine Musculoskeletal Exam Musculoskeletal: Present: moving extremities well - Routine Skin Exam Present: dry, warm, wounds (dressing to left heel) - Routine Neurological Exam Present: alert - Routine Psychiatric Exam Present: cooperative Results - Labs CBC & Chem 7: 12/12/16 18:17 12/16/16 08:10 Microbiology Results: Microbiology 12/16/16 19:30 Not Provided Urine Culture - Final No Growth After 2 Days Assessment and Plan (1) Acute psychosis Current visit: Yes Status: Acute Assessment and Plan: IMPRESSION Acute psychosis - Paranoia with delusions Mildly elevated LFTs - RESOLVED Elevated BP (poss r/t agitation) - IMPROVING Dementia JUNIOR PLAN Medically stable. BP stabilizing. Dr. Knight's note reviewed - Seroquel increased. Hospital Course Summary Disclaimer: The visit summary below is not to be considered part of the above Progress Note. Hospital Course: 12/13/16 08:03 IMPRESSION Acute psychosis - Paranoia with delusions Mildly elevated LFTs Elevated BP (poss r/t agitation) Dementia JUNIOR PLAN Agree with admission. Labs reviewed and compared with outside records - mild acute elevations in AST/ ALT - monitor - could be r/t med effect since all meds are new to her. BP was elevated last night, though this is when she was agitated - monitor this over the next 24-48 hours to see if she might need an antihypertensive. Check Vit B12 and prealbumin. Provide safe/supportive environment. Medically stable for [facility] activities. code status in chart - DNR - will need to clarify with family. 12/14/16 12:17 Remains confused and agitated at times. Continue current care and will discuss with family use of Depakote 12/15/16 21:17 Remains confused. Increase Seroquel to 50mg PO TID. 12/16/16 IMPRESSION Acute psychosis - Paranoia with delusions Mildly elevated LFTs - RESOLVED Elevated BP (poss r/t agitation) - IMPROVING Dementia JUNIOR PLAN CMP repeated - LFTs back to normal. Vit B12 was 313 which is low-normal. Start replacement. Prealbumin also low at 15.9 - will order nutritional supplements. VS labile ranging 100/63 this am but was 195/85 on 12/13 - cont to monitor. 12/16/16 17:08 Remains confused but a little better today. Continue current care 12/17/16 Psych: Continue current care though apppears patient continues to be impulsive, restless. Will again revisit use of Depakote with family, consider CT scan as she has not had one done per son. 12/18/16 Psych: Patient was aggressive/resistive with cares last night. Will increase Seroquel to 50mg PO BID (AM, afternoon) and 100mg PO q HS to target evening agitation.
[2016-12-19] MEDS: CYANOCOBALAMIN (B-12) 500mcg TABLET PO SCH (10:03)
[2016-12-19] MEDS: QUETIAPINE 50 MG TABLET PO SCH ×2 (10:03→14:50)
[2016-12-19] MEDS: SERTRALINE 50 MG TABLET PO SCH (10:03)
--- NOTE | 2016-12-19 16:23 | Neuropsych Progress Note ---
[facility] Subjective Date: 12/19/16 - Sujective/Severity of Illness Medications: Carbamide Peroxide (Debrox) 2 drops EACH EAR DAILY PRN PRN Reason: For ear wax removal Cyanocobalamin (Vit. B-12) 500 mcg PO DAILY [facility] Last Admin: 12/19/16 10:03 Dose: 500 mcg Haloperidol (Haldol) 0.5 mg PO Q6H PRN PRN Reason: Extreme agitation Last Admin: 12/18/16 17:16 Dose: 0.5 mg Haloperidol Lactate (Haldol) 0.5 mg IM Q6H PRN PRN Reason: Extreme agitation Last Admin: 12/17/16 18:54 Dose: 0.5 mg Lorazepam (Ativan) 0.5 mg PO Q6H PRN PRN Reason: Extreme agitation Last Admin: 12/18/16 17:16 Dose: 0.5 mg Lorazepam (Ativan Inj) 0.5 mg IM Q6H PRN PRN Reason: Extreme agitation Last Admin: 12/17/16 18:53 Dose: 0.5 mg Magnesium Hydroxide (Mom) 30 ml PO DAILY PRN PRN Reason: Constipation Metoprolol Tartrate (Lopressor) 12.5 mg PO BIDWM [facility] Last Admin: 12/19/16 10:01 Dose: 12.5 mg Quetiapine Fumarate (Seroquel) 100 mg PO HS [facility] Last Admin: 12/18/16 20:38 Dose: Not Given Quetiapine Fumarate (Seroquel) 50 mg PO 09,13 [facility] Last Admin: 12/19/16 14:50 Dose: 50 mg Sertraline HCl (Zoloft) 50 mg PO QAM [facility] Last Admin: 12/19/16 10:03 Dose: 50 mg Subjective: Patient seen and chart reviewed. Case discussed with treatment team. On interview, patient does not answer any of my questions logically but seems to be pleasantly confused. She enjoys socializing and engaging with others. Nursing staff report she was resistive with cares but not combative. She requires frequent prompts and is somewhat resistant to meds though the issue seems to be patient does not understand prompts d/t MNCD. She can be mildly irritable with physical prompts though doesn't understand verbal prompts. Patient slept well overnight. VSS though slightly unsteady this morning - requested orthostatics this evening and in AM. Patient is eating well. Psychotropic PRNs required in the past 24 hours: Haldol, Ativan x1 each. Start Time: 13:20 Stop Time: 13:40 Mental Status Exam Vitals: Last Vital Signs Temp 97.6 F 12/19/16 08:00 Pulse 85 12/19/16 08:00 Resp 16 12/19/16 08:00 BP 142/89 H 12/19/16 08:00 Pulse Ox 98 12/19/16 08:00 Height: 1.57 m Weight: 53.9 kg - Mental Status Exam Muscle Strength/Tone: Normal Dressing: Casual Grooming: Good Attitude: Uncooperative (d/t MNCD) Motor Activity: Other (frequently stands (at premorbid baseline), paces at times ) Eye Contact: Poor Speech: Slowed, Other (some expressive aphasia suspected) Volume: Soft Rhythm: Mumbled Orientation: Oriented to person Mood: Neutral (labile affect) Rate of Thoughts: Delayed Thought Organization: Confused Associations: Flight of Ideas, Illogical Abstract Reasoning: Poor abstract reasoning Thought Content: Paranoia (decreased) Perception/Psychotic: Perception Normal Language: Naming Impaired Fund of Knowledge: Poor fund of knowledge Memory: Poor-immediate, Poor-recent, Poor-remote Suicidal Ideation: None Homicidal Ideation: None Insight: Poor Judgement: Poor Impulse Control: Poor (improving) - Laboratory Result Diagrams: 12/12/16 18:17 12/16/16 08:10 Assessment and Plan (1) Major neurocognitive disorder Problem details: mixed etiology (Alzheimer's and vascular), moderate, with behavioral disturbance Current visit: Yes Status: Acute Hospital Course Summary Disclaimer: The visit summary below is not to be considered part of the above Progress Note. Hospital Course: 12/13/16 08:03 IMPRESSION Acute psychosis - Paranoia with delusions Mildly elevated LFTs Elevated BP (poss r/t agitation) Dementia JUNIOR PLAN Agree with admission. Labs reviewed and compared with outside records - mild acute elevations in AST/ ALT - monitor - could be r/t med effect since all meds are new to her. BP was elevated last night, though this is when she was agitated - monitor this over the next 24-48 hours to see if she might need an antihypertensive. Check Vit B12 and prealbumin. Provide safe/supportive environment. Medically stable for [facility] activities. code status in chart - DNR - will need to clarify with family. 12/14/16 12:17 Remains confused and agitated at times. Continue current care and will discuss with family use of Depakote 12/15/16 21:17 Remains confused. Increase Seroquel to 50mg PO TID. 12/16/16 IMPRESSION Acute psychosis - Paranoia with delusions Mildly elevated LFTs - RESOLVED Elevated BP (poss r/t agitation) - IMPROVING Dementia JUNIOR PLAN CMP repeated - LFTs back to normal. Vit B12 was 313 which is low-normal. Start replacement. Prealbumin also low at 15.9 - will order nutritional supplements. VS labile ranging 100/63 this am but was 195/85 on 12/13 - cont to monitor. 12/16/16 17:08 Remains confused but a little better today. Continue current care 12/17/16 Psych: Continue current care though apppears patient continues to be impulsive, restless. Will again revisit use of Depakote with family, consider CT scan as she has not had one done per son. 12/18/16 Psych: Patient was aggressive/resistive with cares last night. Will increase Seroquel to 50mg PO BID (AM, afternoon) and 100mg PO q HS to target evening agitation. 12/19/16 Psych: Will increase Seroquel to 50mg in AM, 75mg in afternoon and 100mg q HS. Monitoring orthostatics. Improved with increased HS dose of antipsychotic.
[2016-12-19] MEDS: QUETIAPINE 100 MG TABLET PO SCH (20:21)
[2016-12-19] MEDS: LORazepam 0.5 MG TABLET PO PRN (20:21)
[2016-12-20] MEDS: QUETIAPINE 50 MG TABLET PO SCH ×4 (07:47→12:04)
[2016-12-20] MEDS: CYANOCOBALAMIN (B-12) 500mcg TABLET PO SCH ×2 (07:47→10:54)
[2016-12-20] MEDS: SERTRALINE 50 MG TABLET PO SCH ×2 (07:48→10:55)
--- NOTE | 2016-12-20 12:01 | Neuropsych Progress Note ---
[facility] Subjective Date: 12/20/16 - Sujective/Severity of Illness Medications: Carbamide Peroxide (Debrox) 2 drops EACH EAR DAILY PRN PRN Reason: For ear wax removal Cyanocobalamin (Vit. B-12) 500 mcg PO DAILY [facility] Last Admin: 12/20/16 10:54 Dose: Not Given Haloperidol (Haldol) 0.5 mg PO Q6H PRN PRN Reason: Extreme agitation Last Admin: 12/18/16 17:16 Dose: 0.5 mg Haloperidol Lactate (Haldol) 0.5 mg IM Q6H PRN PRN Reason: Extreme agitation Last Admin: 12/17/16 18:54 Dose: 0.5 mg Lorazepam (Ativan) 0.5 mg PO Q6H PRN PRN Reason: Extreme agitation Last Admin: 12/19/16 20:21 Dose: 0.5 mg Lorazepam (Ativan Inj) 0.5 mg IM Q6H PRN PRN Reason: Extreme agitation Last Admin: 12/17/16 18:53 Dose: 0.5 mg Magnesium Hydroxide (Mom) 30 ml PO DAILY PRN PRN Reason: Constipation Metoprolol Tartrate (Lopressor) 12.5 mg PO BIDWM [facility] Last Admin: 12/20/16 07:47 Dose: 12.5 mg Quetiapine Fumarate (Seroquel) 100 mg PO HS [facility] Last Admin: 12/19/16 20:21 Dose: 100 mg Quetiapine Fumarate (Seroquel) 50 mg PO DAILY [facility] Last Admin: 12/20/16 10:55 Dose: Not Given Quetiapine Fumarate (Seroquel) 75 mg PO 13 [facility] Sertraline HCl (Zoloft) 50 mg PO QAM [facility] Last Admin: 12/20/16 10:55 Dose: Not Given Subjective: Pt seen and chart examined. Nursing reports pt is a little better but continues to be confused and pace and can be difficult to redirect at times. On face to face the pt is more verbal than when she was seen by this commercial loan underwriter earlier in the week. She is only oriented to self and states she is waiting to go to [employer] to start classes with her mom. She denies pain. Tolerating meds Start Time: 11:15 Stop Time: 11:30 Mental Status Exam Vitals: Last Vital Signs Temp 98.3 F 12/20/16 10:16 Pulse 93 12/20/16 10:17 Resp 16 12/20/16 10:16 BP 111/68 12/20/16 10:17 Pulse Ox 99 12/20/16 10:17 Height: 1.57 m Weight: 53.9 kg - Mental Status Exam Muscle Strength/Tone: Normal Dressing: Casual Grooming: Good Attitude: Uncooperative (d/t MNCD) Motor Activity: Other (frequently stands (at premorbid baseline), paces at times ) Eye Contact: Poor Speech: Slowed, Other (some expressive aphasia suspected) Volume: Soft Rhythm: Mumbled Orientation: Oriented to person Mood: Neutral (labile affect) Rate of Thoughts: Delayed Thought Organization: Confused Associations: Flight of Ideas, Illogical Abstract Reasoning: Poor abstract reasoning Thought Content: Paranoia (decreased) Perception/Psychotic: Perception Normal Language: Naming Impaired Fund of Knowledge: Poor fund of knowledge Memory: Poor-immediate, Poor-recent, Poor-remote Suicidal Ideation: None Homicidal Ideation: None Insight: Poor Judgement: Poor Impulse Control: Poor (improving) - Laboratory Result Diagrams: 12/12/16 18:17 12/16/16 08:10 Laboratory Results - last 24 hr 12/20/16 06:55 Hemoglobin A1c 5.4 L Triglycerides 113 Cholesterol 173 LDL Cholesterol, Calc 100.4 VLDL Cholesterol 22.6 HDL Cholesterol 50 Cholesterol/HDL Ratio 3.5 Assessment and Plan (1) Major neurocognitive disorder Problem details: mixed etiology (Alzheimer's and vascular), moderate, with behavioral disturbance Current visit: Yes Status: Acute Hospital Course Summary Disclaimer: The visit summary below is not to be considered part of the above Progress Note. Hospital Course: 12/13/16 08:03 IMPRESSION Acute psychosis - Paranoia with delusions Mildly elevated LFTs Elevated BP (poss r/t agitation) Dementia JUNIOR PLAN Agree with admission. Labs reviewed and compared with outside records - mild acute elevations in AST/ ALT - monitor - could be r/t med effect since all meds are new to her. BP was elevated last night, though this is when she was agitated - monitor this over the next 24-48 hours to see if she might need an antihypertensive. Check Vit B12 and prealbumin. Provide safe/supportive environment. Medically stable for [facility] activities. code status in chart - DNR - will need to clarify with family. 12/14/16 12:17 Remains confused and agitated at times. Continue current care and will discuss with family use of Depakote 12/15/16 21:17 Remains confused. Increase Seroquel to 50mg PO TID. 12/16/16 IMPRESSION Acute psychosis - Paranoia with delusions Mildly elevated LFTs - RESOLVED Elevated BP (poss r/t agitation) - IMPROVING Dementia JUNIOR PLAN CMP repeated - LFTs back to normal. Vit B12 was 313 which is low-normal. Start replacement. Prealbumin also low at 15.9 - will order nutritional supplements. VS labile ranging 100/63 this am but was 195/85 on 12/13 - cont to monitor. 12/16/16 17:08 Remains confused but a little better today. Continue current care 12/17/16 Psych: Continue current care though apppears patient continues to be impulsive, restless. Will again revisit use of Depakote with family, consider CT scan as she has not had one done per son. 12/18/16 Psych: Patient was aggressive/resistive with cares last night. Will increase Seroquel to 50mg PO BID (AM, afternoon) and 100mg PO q HS to target evening agitation. 12/19/16 Psych: Will increase Seroquel to 50mg in AM, 75mg in afternoon and 100mg q HS. Monitoring orthostatics. Improved with increased HS dose of antipsychotic. 12/20/16 12:00 Slightly improved but remains impulsive and confused with exit seeking behavior. Continue current care
[2016-12-20] MEDS: LORazepam 0.5 MG TABLET PO PRN ×2 (12:04→20:17)
[2016-12-20] MEDS: QUETIAPINE 100 MG TABLET PO SCH (20:12)
[2016-12-20] MEDS: HALOPERIDOL 5 MG/ML INJECTION IM PRN (21:35)
[2016-12-21] MEDS: HALOPERIDOL 5 MG/ML INJECTION IM PRN ×3 (01:05→18:48)
[2016-12-21] MEDS: CYANOCOBALAMIN (B-12) 500mcg TABLET PO SCH (09:53)
[2016-12-21] MEDS: QUETIAPINE 50 MG TABLET PO SCH ×2 (09:53→12:00)
[2016-12-21] MEDS: SERTRALINE 50 MG TABLET PO SCH (09:53)
--- NOTE | 2016-12-21 11:13 | Neuropsych Progress Note ---
[facility] Subjective Date: 12/21/16 - Sujective/Severity of Illness Medications: Carbamide Peroxide (Debrox) 2 drops EACH EAR DAILY PRN PRN Reason: For ear wax removal Cyanocobalamin (Vit. B-12) 500 mcg PO DAILY [facility] Last Admin: 12/21/16 09:53 Dose: 500 mcg Haloperidol (Haldol) 0.5 mg PO Q6H PRN PRN Reason: Extreme agitation Last Admin: 12/18/16 17:16 Dose: 0.5 mg Haloperidol Lactate (Haldol) 0.5 mg IM Q6H PRN PRN Reason: Extreme agitation Last Admin: 12/21/16 09:55 Dose: 0.5 mg Lorazepam (Ativan) 0.5 mg PO Q6H PRN PRN Reason: Extreme agitation Last Admin: 12/20/16 20:17 Dose: 0.5 mg Lorazepam (Ativan Inj) 0.5 mg IM Q6H PRN PRN Reason: Extreme agitation Last Admin: 12/21/16 09:55 Dose: 0.5 mg Magnesium Hydroxide (Mom) 30 ml PO DAILY PRN PRN Reason: Constipation Metoprolol Tartrate (Lopressor) 12.5 mg PO BIDWM [facility] Last Admin: 12/21/16 09:52 Dose: 12.5 mg Quetiapine Fumarate (Seroquel) 100 mg PO HS [facility] Last Admin: 12/20/16 20:12 Dose: 100 mg Quetiapine Fumarate (Seroquel) 50 mg PO DAILY [facility] Last Admin: 12/21/16 09:53 Dose: 50 mg Quetiapine Fumarate (Seroquel) 75 mg PO 13 [facility] Last Admin: 12/20/16 12:04 Dose: 75 mg Sertraline HCl (Zoloft) 50 mg PO QAM [facility] Last Admin: 12/21/16 09:53 Dose: 50 mg Subjective: Pt seen and chart examined. Nursing reports pt is irritable and agitated at times and is exit seeking. Pt received Ativan and Haldol last night and also this AM. On face to face the pt is resting in her chair. She denies any pain. She is only oriented to self. Tolerating meds Start Time: 10:30 Stop Time: 10:45 Mental Status Exam Vitals: Last Vital Signs Temp 98.2 F 12/21/16 06:00 Pulse 96 12/21/16 06:00 Resp 20 12/21/16 06:00 BP 150/84 H 12/21/16 06:00 Pulse Ox 96 12/21/16 06:00 Height: 1.57 m Weight: 53.9 kg - Mental Status Exam Muscle Strength/Tone: Normal Dressing: Casual Grooming: Good Attitude: Uncooperative (d/t MNCD) Motor Activity: Other (frequently stands (at premorbid baseline), paces at times ) Eye Contact: Poor Speech: Slowed, Other (some expressive aphasia suspected) Volume: Soft Rhythm: Mumbled Orientation: Oriented to person Mood: Neutral (labile affect) Rate of Thoughts: Delayed Thought Organization: Confused Associations: Flight of Ideas, Illogical Abstract Reasoning: Poor abstract reasoning Thought Content: Paranoia (decreased) Perception/Psychotic: Perception Normal Language: Naming Impaired Fund of Knowledge: Poor fund of knowledge Memory: Poor-immediate, Poor-recent, Poor-remote Suicidal Ideation: None Homicidal Ideation: None Insight: Poor Judgement: Poor Impulse Control: Poor (improving) - Laboratory Result Diagrams: 12/12/16 18:17 12/16/16 08:10 Assessment and Plan (1) Major neurocognitive disorder Problem details: mixed etiology (Alzheimer's and vascular), moderate, with behavioral disturbance Current visit: Yes Status: Acute Hospital Course Summary Disclaimer: The visit summary below is not to be considered part of the above Progress Note. Hospital Course: 12/13/16 08:03 IMPRESSION Acute psychosis - Paranoia with delusions Mildly elevated LFTs Elevated BP (poss r/t agitation) Dementia JUNIOR PLAN Agree with admission. Labs reviewed and compared with outside records - mild acute elevations in AST/ ALT - monitor - could be r/t med effect since all meds are new to her. BP was elevated last night, though this is when she was agitated - monitor this over the next 24-48 hours to see if she might need an antihypertensive. Check Vit B12 and prealbumin. Provide safe/supportive environment. Medically stable for [facility] activities. code status in chart - DNR - will need to clarify with family. 12/14/16 12:17 Remains confused and agitated at times. Continue current care and will discuss with family use of Depakote 12/15/16 21:17 Remains confused. Increase Seroquel to 50mg PO TID. 12/16/16 IMPRESSION Acute psychosis - Paranoia with delusions Mildly elevated LFTs - RESOLVED Elevated BP (poss r/t agitation) - IMPROVING Dementia JUNIOR PLAN CMP repeated - LFTs back to normal. Vit B12 was 313 which is low-normal. Start replacement. Prealbumin also low at 15.9 - will order nutritional supplements. VS labile ranging 100/63 this am but was 195/85 on 12/13 - cont to monitor. 12/16/16 17:08 Remains confused but a little better today. Continue current care 12/17/16 Psych: Continue current care though apppears patient continues to be impulsive, restless. Will again revisit use of Depakote with family, consider CT scan as she has not had one done per son. 12/18/16 Psych: Patient was aggressive/resistive with cares last night. Will increase Seroquel to 50mg PO BID (AM, afternoon) and 100mg PO q HS to target evening agitation. 12/19/16 Psych: Will increase Seroquel to 50mg in AM, 75mg in afternoon and 100mg q HS. Monitoring orthostatics. Improved with increased HS dose of antipsychotic. 12/20/16 12:00 Slightly improved but remains impulsive and confused with exit seeking behavior. Continue current care 12/21/16 11:12 Remains impulsive and agitated at times with exit seeking behavior
[2016-12-21] MEDS: QUETIAPINE 100 MG TABLET PO SCH (20:15)
[2016-12-22] MEDS: QUETIAPINE 100 MG TABLET PO SCH (02:12)
[2016-12-22] MEDS: SERTRALINE 50 MG TABLET PO SCH (08:20)
[2016-12-22] MEDS: CYANOCOBALAMIN (B-12) 500mcg TABLET PO SCH (08:20)
[2016-12-22] MEDS: QUETIAPINE 50 MG TABLET PO SCH ×3 (08:20→12:26)
[2016-12-22] MEDS: HALOPERIDOL 0.5 MG TABLET PO PRN (08:24)
[2016-12-22] MEDS: LORazepam 0.5 MG TABLET PO PRN (08:24)
[2016-12-22] MEDS: HALOPERIDOL 5 MG/ML INJECTION IM PRN (12:38)
--- NOTE | 2016-12-22 14:33 | Progress Note ---
- Date 12/22/16 Subjective: Avni had a fall this afternoon - she was exiting her room and her feet became tangled. A EARLY CHILDHOOD EDUCATOR AIDE was with her, and fell down with her, landing on top of Avni. Avni did not strike her head or sustain any injuries. She was agitated/combative earlier today, and staff gave PRN meds, which may have contributed to unsteady gait. Avni is constantly moving but currently is in a recliner. She's been ambulatory since the fall. There has not been any vomiting or c/o pain. She's awake but is unable to answer questions appropriately or follow commands. Objective Vital signs: Temperature 97.2 F 12/22/16 07:51 Pulse Rate 86 12/22/16 07:51 Respiratory Rate 16 12/22/16 07:51 Blood Pressure 136/81 12/22/16 07:51 Pulse Oximetry 99 12/22/16 07:51 Height/Weight/BMI: Height 1.57 m Weight 53.9 kg Body Mass Index 21.5 - Constitutional Present: well nourished, well developed, thin - Routine HEENT Exam Head: Present: normocephalic Eye: Present: PERRL. Absent: conjunctival icterus, scleral injection ENT: Present: oropharynx clear, nares patent - Routine Respiratory Exam Present: CTA bilaterally - Routine Cardiovascular Exam Present: RRR, S1, S2 - Routine Abdominal Exam Present: soft, normoactive bowel sounds, non tender - Routine Extremities Exam Present: no edema, pulses intact - Routine Musculoskeletal Exam Musculoskeletal: Present: moving extremities well - Routine Skin Exam Present: intact, dry, warm - Routine Neurological Exam Present: alert, CN II-XII intact (unable to test; pt cannot follow commands), moving all extremities, vision grossly intact, hearing grossly intact. Absent: facial asymmetry, tremors - Routine Psychiatric Exam Present: unable to assess Results - Labs CBC & Chem 7: 12/12/16 18:17 12/16/16 08:10 Microbiology Results: Microbiology 12/16/16 19:30 Not Provided Urine Culture - Final No Growth After 2 Days Assessment and Plan (1) Acute psychosis Current visit: Yes Status: Acute Assessment and Plan: IMPRESSION Acute psychosis - Paranoia with delusions Fall on 12/22/16 - no injury Mildly elevated LFTs - RESOLVED Elevated BP (poss r/t agitation) - IMPROVING Dementia JUNIOR PLAN Check BMP and CBC to ensure no underlying rationale for fall. VSS. No obvious neuro deficits. Continue to provide safe environment; monitor post-fall. Hospital Course Summary Disclaimer: The visit summary below is not to be considered part of the above Progress Note. Hospital Course: 12/13/16 08:03 IMPRESSION Acute psychosis - Paranoia with delusions Mildly elevated LFTs Elevated BP (poss r/t agitation) Dementia JUNIOR PLAN Agree with admission. Labs reviewed and compared with outside records - mild acute elevations in AST/ ALT - monitor - could be r/t med effect since all meds are new to her. BP was elevated last night, though this is when she was agitated - monitor this over the next 24-48 hours to see if she might need an antihypertensive. Check Vit B12 and prealbumin. Provide safe/supportive environment. Medically stable for [facility] activities. code status in chart - DNR - will need to clarify with family. 12/14/16 12:17 Remains confused and agitated at times. Continue current care and will discuss with family use of Depakote 12/15/16 21:17 Remains confused. Increase Seroquel to 50mg PO TID. 12/16/16 IMPRESSION Acute psychosis - Paranoia with delusions Mildly elevated LFTs - RESOLVED Elevated BP (poss r/t agitation) - IMPROVING Dementia JUNIOR PLAN CMP repeated - LFTs back to normal. Vit B12 was 313 which is low-normal. Start replacement. Prealbumin also low at 15.9 - will order nutritional supplements. VS labile ranging 100/63 this am but was 195/85 on 12/13 - cont to monitor. 12/16/16 17:08 Remains confused but a little better today. Continue current care 12/17/16 Psych: Continue current care though apppears patient continues to be impulsive, restless. Will again revisit use of Depakote with family, consider CT scan as she has not had one done per son. 12/18/16 Psych: Patient was aggressive/resistive with cares last night. Will increase Seroquel to 50mg PO BID (AM, afternoon) and 100mg PO q HS to target evening agitation. 12/19/16 Psych: Will increase Seroquel to 50mg in AM, 75mg in afternoon and 100mg q HS. Monitoring orthostatics. Improved with increased HS dose of antipsychotic. 12/20/16 12:00 Slightly improved but remains impulsive and confused with exit seeking behavior. Continue current care 12/21/16 11:12 Remains impulsive and agitated at times with exit seeking behavior 12/22/16 Check BMP and CBC to ensure no underlying rationale for fall. VSS. No obvious neuro deficits. Continue to provide safe environment; monitor post-fall.
--- NOTE | 2016-12-22 18:16 | Neuropsych Progress Note ---
[facility] Subjective Date: 12/22/16 - Sujective/Severity of Illness Medications: Carbamide Peroxide (Debrox) 2 drops EACH EAR DAILY PRN PRN Reason: For ear wax removal Cyanocobalamin (Vit. B-12) 500 mcg PO DAILY [facility] Last Admin: 12/22/16 08:20 Dose: 500 mcg Haloperidol (Haldol) 0.5 mg PO Q6H PRN PRN Reason: Extreme agitation Last Admin: 12/22/16 08:24 Dose: 0.5 mg Haloperidol Lactate (Haldol) 0.5 mg IM Q6H PRN PRN Reason: Extreme agitation Last Admin: 12/22/16 12:38 Dose: 0.5 mg Lorazepam (Ativan) 0.5 mg PO Q6H PRN PRN Reason: Extreme agitation Last Admin: 12/22/16 08:24 Dose: 0.5 mg Lorazepam (Ativan Inj) 0.5 mg IM Q6H PRN PRN Reason: Extreme agitation Last Admin: 12/22/16 12:37 Dose: 0.5 mg Magnesium Hydroxide (Mom) 30 ml PO DAILY PRN PRN Reason: Constipation Metoprolol Tartrate (Lopressor) 12.5 mg PO BIDWM [facility] Last Admin: 12/22/16 17:19 Dose: 12.5 mg Quetiapine Fumarate (Seroquel) 100 mg PO HS [facility] Last Admin: 12/22/16 02:12 Dose: Not Given Quetiapine Fumarate (Seroquel) 50 mg PO DAILY [facility] Last Admin: 12/22/16 08:20 Dose: 50 mg Quetiapine Fumarate (Seroquel) 75 mg PO 13 [facility] Last Admin: 12/22/16 12:26 Dose: Not Given Sertraline HCl (Zoloft) 50 mg PO QAM [facility] Last Admin: 12/22/16 08:20 Dose: 50 mg Subjective: Patient seen and chart reviewed. Case discussed with treatment team. On interview, patient is asleep after just having received PRNs for aggression. Nursing staff report continued agitation and intermittent aggression, worse in evenings. Patient had fall this morning but did not hit her head. Patient slept well overnight. VSS. Nurses don't feel patient would cooperate with orthostatics. Patient is eating well. Psychotropic PRNs required in the past 24 hours: multiple. Discussed care with DUNIA Christopher, who reported unsteadiness has lasted ~4 months prior to presentation. All questions answered to her satisfaction at this time. Start Time: 13:20 Stop Time: 13:40 Mental Status Exam Vitals: Last Vital Signs Temp 97.2 F 12/22/16 16:37 Pulse 92 12/22/16 16:37 Resp 18 12/22/16 16:37 BP 131/75 12/22/16 16:37 Pulse Ox 99 12/22/16 16:37 Height: 1.57 m Weight: 53.9 kg - Mental Status Exam Muscle Strength/Tone: Normal Dressing: Casual Grooming: Good Attitude: Uncooperative (d/t MNCD) Motor Activity: Restless Eye Contact: Poor Speech: Slowed, Other (some expressive aphasia suspected) Volume: Soft Rhythm: Mumbled Orientation: Oriented to person Mood: Neutral (labile affect) Rate of Thoughts: Delayed Thought Organization: Confused Associations: Flight of Ideas, Illogical Abstract Reasoning: Poor abstract reasoning Thought Content: Paranoia (decreased) Perception/Psychotic: Perception Normal Language: Naming Impaired Fund of Knowledge: Poor fund of knowledge Memory: Poor-immediate, Poor-recent, Poor-remote Suicidal Ideation: None Homicidal Ideation: None Insight: Poor Judgement: Poor Impulse Control: Poor (improving) - Laboratory Result Diagrams: 12/22/16 14:45 12/22/16 14:45 Laboratory Results - last 24 hr 12/22/16 12/22/16 14:45 14:45 WBC 8.1 RBC 4.52 Hgb 13.6 Hct 41.9 MCV 92.7 MCH 30.1 MCHC 32.5 RDW Std Deviation 43.5 Plt Count 230 MPV 10.1 Immature Gran % (Auto) Not performed Neut % (Auto) Not performed Lymph % (Auto) Not performed [place] % (Auto) Not performed Eos % (Auto) Not performed Baso % (Auto) Not performed Neut # (Auto) Not performed Lymph # (Auto) Not performed [place] # (Auto) Not performed Eos # (Auto) Not performed Baso # (Auto) Not performed Abs Immat Gran (auto) Not performed Neutrophils % (Manual) 56.0 Band Neutrophils % 1.0 Lymphocytes % (Manual) 37.0 Reactive Lymphs % 1.0 H Monocytes % (Manual) 5.0 Neutrophils # (Manual) 4.5 Band Neutrophils # 0.1 Lymphocytes # (Manual) 3.0 Abs React Lymphs (Man) 0.1 H Monocytes # (Manual) 0.4 RBC Morph Comment Normal Turbidity < 20 Sodium 142 Potassium 4.5 Chloride 101 Carbon Dioxide 31 H Anion Gap 10 BUN 21.0 H Creatinine 0.8 GFR Calculation 71 BUN/Creatinine Ratio 26 Glucose 113 H Calculated Osmolality 277 Calcium 9.0 Icterus Index < 2 Specimen Hemolysis 22 Assessment and Plan (1) Major neurocognitive disorder Problem details: mixed etiology (Alzheimer's and vascular), moderate, with behavioral disturbance Current visit: Yes Status: Acute Hospital Course Summary Disclaimer: The visit summary below is not to be considered part of the above Progress Note. Hospital Course: 12/13/16 08:03 IMPRESSION Acute psychosis - Paranoia with delusions Mildly elevated LFTs Elevated BP (poss r/t agitation) Dementia JUNIOR PLAN Agree with admission. Labs reviewed and compared with outside records - mild acute elevations in AST/ ALT - monitor - could be r/t med effect since all meds are new to her. BP was elevated last night, though this is when she was agitated - monitor this over the next 24-48 hours to see if she might need an antihypertensive. Check Vit B12 and prealbumin. Provide safe/supportive environment. Medically stable for [facility] activities. code status in chart - DNR - will need to clarify with family. 12/14/16 12:17 Remains confused and agitated at times. Continue current care and will discuss with family use of Depakote 12/15/16 21:17 Remains confused. Increase Seroquel to 50mg PO TID. 12/16/16 IMPRESSION Acute psychosis - Paranoia with delusions Mildly elevated LFTs - RESOLVED Elevated BP (poss r/t agitation) - IMPROVING Dementia JUNIOR PLAN CMP repeated - LFTs back to normal. Vit B12 was 313 which is low-normal. Start replacement. Prealbumin also low at 15.9 - will order nutritional supplements. VS labile ranging 100/63 this am but was 195/85 on 12/13 - cont to monitor. 12/16/16 17:08 Remains confused but a little better today. Continue current care 12/17/16 Psych: Continue current care though apppears patient continues to be impulsive, restless. Will again revisit use of Depakote with family, consider CT scan as she has not had one done per son. 12/18/16 Psych: Patient was aggressive/resistive with cares last night. Will increase Seroquel to 50mg PO BID (AM, afternoon) and 100mg PO q HS to target evening agitation. 12/19/16 Psych: Will increase Seroquel to 50mg in AM, 75mg in afternoon and 100mg q HS. Monitoring orthostatics. Improved with increased HS dose of antipsychotic. 12/20/16 12:00 Slightly improved but remains impulsive and confused with exit seeking behavior. Continue current care 12/21/16 11:12 Remains impulsive and agitated at times with exit seeking behavior 12/22/16 Check BMP and CBC to ensure no underlying rationale for fall. VSS. No obvious neuro deficits. Continue to provide safe environment; monitor post-fall. 12/22/16 Psych: Will switch from Seroquel to Risperdal to minimize any anticholinergic effect - will change to Risperdal 1mg PO BID and monitor response.
[2016-12-22] MEDS: RisperiDONE 1 MG TABLET PO SCH (20:15)
[2016-12-23] MEDS: SERTRALINE 50 MG TABLET PO SCH ×2 (07:57→09:20)
[2016-12-23] MEDS: RisperiDONE 1 MG TABLET PO SCH ×3 (07:57→20:40)
[2016-12-23] MEDS: CYANOCOBALAMIN (B-12) 500mcg TABLET PO SCH ×2 (07:57→09:19)
--- NOTE | 2016-12-23 09:17 | Progress Note ---
<AntonioarturoLudivina Allen - Last Filed: 12/23/16 09:13> - Date 12/23/16 Subjective: Avni was seen this morning in follow up for her recent fall on 12/22/16 as well as her major neurocognitive disorder. She is seen initially while exit seeking and pacing the halls with nursing at her side. She is later seen while sitting in a recliner in the day room, having just received PRN ativan for agitation and restlessness. She speaks in illogical patterns and is easily agitated. Nursing remains at her side and contributes to her recent history. Nursing reports that she lost her balance yesterday and was assisted to the ground. Avni sustained no injuries and did not hit her head or loose consciousness. She was seen ambulating easily without assistance prior to interview. Review of the nursing notes and medical chart reveals she continues to require multiple doses of PRN medications due to behaviors and often requiring 1:1 care. Labs on 12/22 were unremarkable and UA culture reveals no growth after 2 days. Her appetite is fair and bowels are moving. Nursing denies any acute concerns. Objective Vital signs: Temperature 98.2 F 12/22/16 19:30 Pulse Rate 69 12/22/16 19:30 Respiratory Rate 20 12/22/16 19:30 Blood Pressure 132/80 12/22/16 19:30 Pulse Oximetry 93 12/22/16 19:30 Height/Weight/BMI: Height 5 ft 2 in Weight 118 lb 13.266 oz Body Mass Index 21.5 Comments: Patient is seen while sitting in a recliner and is notably agitated, despite having just received ativan prior to exam; initially patient was seen pacing the halls, exit seeking; she speaks in an illogical pattern and gets frustrated easily. - Constitutional Present: well nourished, well developed, agitated - Routine HEENT Exam Head: Present: normocephalic, atraumatic. Absent: abrasion, laceration, hematoma, scalp tenderness, facial swelling Eye: Present: PERRL. Absent: conjunctival icterus ENT: Present: mucous membranes moist - Routine Respiratory Exam Present: CTA bilaterally. Absent: stridor, wheezes, crackles - Routine Cardiovascular Exam Present: RRR, S1, S2 - Routine Abdominal Exam Present: soft, normoactive bowel sounds, non tender. Absent: guarding - Routine Extremities Exam Present: no edema, non tender, full ROM, pulses intact - Routine Back/Spine/Pelvis Exam Back/Spine: Present: full ROM. Absent: vertebral tenderness - Routine Musculoskeletal Exam Musculoskeletal: Present: no clubbing or cyanosis, moving extremities well - Routine Skin Exam Present: intact, dry, warm. Absent: jaundice Comments: afebrile. - Routine Neurological Exam Present: alert, moving all extremities, hearing grossly intact. Absent: facial asymmetry - Routine Lymphatic Exam Lymphatic: Absent: lymphedema - Routine Psychiatric Exam Present: agitated Comments: illogical speech Results - Labs CBC & Chem 7: 12/22/16 14:45 12/22/16 14:45 Microbiology Results: Microbiology 12/16/16 19:30 Not Provided Urine Culture - Final No Growth After 2 Days Assessment and Plan (1) Acute psychosis Current visit: Yes Status: Acute Assessment and Plan: IMPRESSION Acute psychosis - Paranoia with delusions Fall on 12/22/16 - no injury. Mildly elevated LFTs - RESOLVED Elevated BP (poss r/t agitation) - IMPROVING Dementia JUNIOR PLAN-12/23/16: Avni continues to have significant behaviors including exit seeking, agitations and aggressions often requiring PRN medications. Continue psychiatric care per Dr. Knight and team. Seroquel was discontinued and Risperdal was initiated per Dr. Knight. Continue to provide safe and supportive environment. Due to patient's decreased safety awareness, she is at increased risk for falls. Monitor appropriately. CBC and BMP recheck on 12/22/16 and were unremarkable. Continue to monitor periodically throughout admission. UA culture shows no growth after 2 days. Patient remains afebrile. Continue to monitor for signs of infection. Overall, the patient is medically stable. Resuscitation Status: Full Code - Time spent with patient Time with patient PN: 35 minutes Hospital Course Summary Disclaimer: The visit summary below is not to be considered part of the above Progress Note. Hospital Course: 12/13/16 08:03 IMPRESSION Acute psychosis - Paranoia with delusions Mildly elevated LFTs Elevated BP (poss r/t agitation) Dementia JUNIOR PLAN Agree with admission. Labs reviewed and compared with outside records - mild acute elevations in AST/ ALT - monitor - could be r/t med effect since all meds are new to her. BP was elevated last night, though this is when she was agitated - monitor this over the next 24-48 hours to see if she might need an antihypertensive. Check Vit B12 and prealbumin. Provide safe/supportive environment. Medically stable for [facility] activities. code status in chart - DNR - will need to clarify with family. 12/14/16 12:17 Remains confused and agitated at times. Continue current care and will discuss with family use of Depakote 12/15/16 21:17 Remains confused. Increase Seroquel to 50mg PO TID. 12/16/16 IMPRESSION Acute psychosis - Paranoia with delusions Mildly elevated LFTs - RESOLVED Elevated BP (poss r/t agitation) - IMPROVING Dementia JUNIOR PLAN CMP repeated - LFTs back to normal. Vit B12 was 313 which is low-normal. Start replacement. Prealbumin also low at 15.9 - will order nutritional supplements. VS labile ranging 100/63 this am but was 195/85 on 12/13 - cont to monitor. 12/16/16 17:08 Remains confused but a little better today. Continue current care 12/17/16 Psych: Continue current care though apppears patient continues to be impulsive, restless. Will again revisit use of Depakote with family, consider CT scan as she has not had one done per son. 12/18/16 Psych: Patient was aggressive/resistive with cares last night. Will increase Seroquel to 50mg PO BID (AM, afternoon) and 100mg PO q HS to target evening agitation. 12/19/16 Psych: Will increase Seroquel to 50mg in AM, 75mg in afternoon and 100mg q HS. Monitoring orthostatics. Improved with increased HS dose of antipsychotic. 12/20/16 12:00 Slightly improved but remains impulsive and confused with exit seeking behavior. Continue current care 12/21/16 11:12 Remains impulsive and agitated at times with exit seeking behavior 12/22/16 Check BMP and CBC to ensure no underlying rationale for fall. VSS. No obvious neuro deficits. Continue to provide safe environment; monitor post-fall. 12/22/16 Psych: Will switch from Seroquel to Risperdal to minimize any anticholinergic effect - will change to Risperdal 1mg PO BID and monitor response. PLAN-12/23/16: Avni continues to have significant behaviors including exit seeking, agitations and aggressions often requiring PRN medications. Continue psychiatric care per Dr. Knight and team. Seroquel was discontinued and Risperdal was initiated per Dr. Knight. Continue to provide safe and supportive environment. Due to patient's decreased safety awareness, she is at increased risk for falls. Monitor appropriately. CBC and BMP recheck on 12/22/16 and were unremarkable. Continue to monitor periodically throughout admission. UA culture shows no growth after 2 days. Patient remains afebrile. Continue to monitor for signs of infection. Overall, the patient is medically stable. <Jaqui Cohen - Last Filed: 12/23/16 21:00> - Date 12/23/16 Objective Vital signs: Temperature 97.4 F 12/23/16 16:00 Pulse Rate 76 12/23/16 16:00 Respiratory Rate 16 12/23/16 16:00 Blood Pressure 122/77 12/23/16 16:00 Pulse Oximetry 98 12/23/16 16:00 Height/Weight/BMI: Height 1.57 m Weight 53.7 kg Body Mass Index 21.5 Results - Labs CBC & Chem 7: 12/22/16 14:45 12/22/16 14:45 Microbiology Results: Microbiology 12/16/16 19:30 Not Provided Urine Culture - Final No Growth After 2 Days Assessment and Plan (1) Acute psychosis Current visit: Yes Status: Acute Assessment and Plan: I have independently evaluated and examined this patient. I reviewed the chart, the patient's history, and the [employer] HELPER/PA's documented findings as above. We discussed and formulated the assessment and plan as above with additions as below: Mrs. Zhang was resting in the day room when seen. Nursing indicated that her gait is very unsteady but there's been no change in status since the "fall" yesterday (the patient was lowered to the floor gently when she began to fall) and she's had no additional falls today. Patient was resting when seen and did not respond to questions. Respirations were nonlabored with clear breath sounds Irregular cardiac rhythm. Shoulders, upper arms, hips, femurs, and tibias nontender to palpation Later patient observed ambulating with 2 person assistance-leans far forward as she walks, clearly off balance. Laboratory data reviewed, A1c 5.4, lipids unremarkable, B-12 313, prealbumin 15.9 No evidence of injury following yesterday's event, requires close observation due to fall risk. In addition to above diagnoses please add: #1 ambulatory dysfunction/fall risk. Hospital Course Summary Disclaimer: The visit summary below is not to be considered part of the above Progress Note.
--- NOTE | 2016-12-23 15:59 | Neuropsych Progress Note ---
[facility] Subjective Date: 12/23/16 - Sujective/Severity of Illness Medications: Carbamide Peroxide (Debrox) 2 drops EACH EAR DAILY PRN PRN Reason: For ear wax removal Cyanocobalamin (Vit. B-12) 500 mcg PO DAILY [facility] Last Admin: 12/23/16 09:19 Dose: Not Given Haloperidol (Haldol) 0.5 mg PO Q6H PRN PRN Reason: Extreme agitation Last Admin: 12/22/16 08:24 Dose: 0.5 mg Haloperidol Lactate (Haldol) 0.5 mg IM Q6H PRN PRN Reason: Extreme agitation Last Admin: 12/22/16 12:38 Dose: 0.5 mg Lorazepam (Ativan) 0.5 mg PO Q6H PRN PRN Reason: Extreme agitation Last Admin: 12/22/16 08:24 Dose: 0.5 mg Lorazepam (Ativan Inj) 0.5 mg IM Q6H PRN PRN Reason: Extreme agitation Last Admin: 12/23/16 14:45 Dose: 0.5 mg Magnesium Hydroxide (Mom) 30 ml PO DAILY PRN PRN Reason: Constipation Metoprolol Tartrate (Lopressor) 12.5 mg PO BIDWM [facility] Last Admin: 12/23/16 07:56 Dose: 12.5 mg Risperidone (Risperdal) 1 mg PO BID [facility] Last Admin: 12/23/16 09:20 Dose: Not Given Sertraline HCl (Zoloft) 50 mg PO QAM [facility] Last Admin: 12/23/16 09:20 Dose: Not Given Subjective: Patient seen and chart reviewed. Case discussed with treatment team. On interview, patient is awake but doesn't answer any interview questions logically. She paces through the unit in gait belt with tech and does not stay still for very long (though does not appear to be akathisia as patient was active at baseline and recently walked several miles/day with .) Patient is unaware of safety issues and fall risk. Patient slept well overnight. VSS. Nurses don't feel patient would cooperate with orthostatics. Patient is eating well. Psychotropic PRNs required in the past 24 hours: Ativan 0.5mg IM at 0749 today. Start Time: 13:20 Stop Time: 13:40 Mental Status Exam Vitals: Last Vital Signs Temp 97.6 F 12/23/16 08:00 Pulse 78 12/23/16 08:00 Resp 20 12/22/16 19:30 BP 128/76 12/23/16 08:00 Pulse Ox 99 12/23/16 08:00 Height: 1.57 m Weight: 53.7 kg - Mental Status Exam Muscle Strength/Tone: Normal Dressing: Casual Grooming: Good Attitude: Uncooperative (d/t MNCD) Motor Activity: Pacing Eye Contact: Fair Speech: Slowed, Other (some expressive aphasia suspected) Volume: Soft Rhythm: Mumbled Orientation: Oriented to person Mood: Neutral (labile affect) Rate of Thoughts: Delayed Thought Organization: Confused Associations: Flight of Ideas, Illogical Abstract Reasoning: Poor abstract reasoning Thought Content: Paranoia (decreased) Perception/Psychotic: Perception Normal Language: Naming Impaired Fund of Knowledge: Poor fund of knowledge Memory: Poor-immediate, Poor-recent, Poor-remote Suicidal Ideation: None Homicidal Ideation: None Insight: Poor Judgement: Poor Impulse Control: Poor (improving) - Laboratory Result Diagrams: 12/22/16 14:45 12/22/16 14:45 Assessment and Plan (1) Major neurocognitive disorder Problem details: mixed etiology (Alzheimer's and vascular), moderate, with behavioral disturbance Current visit: Yes Status: Acute Hospital Course Summary Disclaimer: The visit summary below is not to be considered part of the above Progress Note. Hospital Course: 12/13/16 08:03 IMPRESSION Acute psychosis - Paranoia with delusions Mildly elevated LFTs Elevated BP (poss r/t agitation) Dementia JUNIOR PLAN Agree with admission. Labs reviewed and compared with outside records - mild acute elevations in AST/ ALT - monitor - could be r/t med effect since all meds are new to her. BP was elevated last night, though this is when she was agitated - monitor this over the next 24-48 hours to see if she might need an antihypertensive. Check Vit B12 and prealbumin. Provide safe/supportive environment. Medically stable for [facility] activities. code status in chart - DNR - will need to clarify with family. 12/14/16 12:17 Remains confused and agitated at times. Continue current care and will discuss with family use of Depakote 12/15/16 21:17 Remains confused. Increase Seroquel to 50mg PO TID. 12/16/16 IMPRESSION Acute psychosis - Paranoia with delusions Mildly elevated LFTs - RESOLVED Elevated BP (poss r/t agitation) - IMPROVING Dementia JUNIOR PLAN CMP repeated - LFTs back to normal. Vit B12 was 313 which is low-normal. Start replacement. Prealbumin also low at 15.9 - will order nutritional supplements. VS labile ranging 100/63 this am but was 195/85 on 12/13 - cont to monitor. 12/16/16 17:08 Remains confused but a little better today. Continue current care 12/17/16 Psych: Continue current care though apppears patient continues to be impulsive, restless. Will again revisit use of Depakote with family, consider CT scan as she has not had one done per son. 12/18/16 Psych: Patient was aggressive/resistive with cares last night. Will increase Seroquel to 50mg PO BID (AM, afternoon) and 100mg PO q HS to target evening agitation. 12/19/16 Psych: Will increase Seroquel to 50mg in AM, 75mg in afternoon and 100mg q HS. Monitoring orthostatics. Improved with increased HS dose of antipsychotic. 12/20/16 12:00 Slightly improved but remains impulsive and confused with exit seeking behavior. Continue current care 12/21/16 11:12 Remains impulsive and agitated at times with exit seeking behavior 12/22/16 Check BMP and CBC to ensure no underlying rationale for fall. VSS. No obvious neuro deficits. Continue to provide safe environment; monitor post-fall. 12/22/16 Psych: Will switch from Seroquel to Risperdal to minimize any anticholinergic effect - will change to Risperdal 1mg PO BID and monitor response. PLAN-12/23/16: Avni continues to have significant behaviors including exit seeking, agitations and aggressions often requiring PRN medications. Continue psychiatric care per Dr. Knight and team. Seroquel was discontinued and Risperdal was initiated per Dr. Knight. Continue to provide safe and supportive environment. Due to patient's decreased safety awareness, she is at increased risk for falls. Monitor appropriately. CBC and BMP recheck on 12/22/16 and were unremarkable. Continue to monitor periodically throughout admission. UA culture shows no growth after 2 days. Patient remains afebrile. Continue to monitor for signs of infection. Overall, the patient is medically stable. 12/23/16 Psych: Continue current care as just changed to Risperdal last evening. Monitor mood, behavior and response to treatment. Patient continues to be significant fall risk due to impulsivity and relatively high activity level.
[2016-12-24] MEDS: SERTRALINE 50 MG TABLET PO SCH (11:13)
[2016-12-24] MEDS: CYANOCOBALAMIN (B-12) 500mcg TABLET PO SCH (11:13)
[2016-12-24] MEDS: RisperiDONE 1 MG TABLET PO SCH (11:13)
[2016-12-24] MEDS ORDERED: HALOPERIDOL 5 MG/ML INJECTION IM PRN (18:08)
--- NOTE | 2016-12-24 19:14 | Neuropsych Progress Note ---
[facility] Subjective Date: 12/24/16 - Sujective/Severity of Illness Medications: Carbamide Peroxide (Debrox) 2 drops EACH EAR DAILY PRN PRN Reason: For ear wax removal Cyanocobalamin (Vit. B-12) 500 mcg PO DAILY [facility] Last Admin: 12/24/16 11:13 Dose: Not Given Haloperidol (Haldol) 0.5 mg PO Q6H PRN PRN Reason: Extreme agitation Last Admin: 12/22/16 08:24 Dose: 0.5 mg Haloperidol Lactate (Haldol) 0.5 mg IM Q6H PRN PRN Reason: Extreme agitation Last Admin: 12/22/16 12:38 Dose: 0.5 mg Lorazepam (Ativan) 0.5 mg PO Q6H PRN PRN Reason: Extreme agitation Last Admin: 12/22/16 08:24 Dose: 0.5 mg Lorazepam (Ativan Inj) 0.5 mg IM Q6H PRN PRN Reason: Extreme agitation Last Admin: 12/23/16 14:45 Dose: 0.5 mg Magnesium Hydroxide (Mom) 30 ml PO DAILY PRN PRN Reason: Constipation Metoprolol Tartrate (Lopressor) 12.5 mg PO BIDWM [facility] Last Admin: 12/24/16 17:08 Dose: 12.5 mg Risperidone (Risperdal) 1 mg PO BID LIZETH Sertraline HCl (Zoloft) 50 mg PO QAM [facility] Last Admin: 12/24/16 11:13 Dose: Not Given Subjective: Patient seen and chart reviewed. Case discussed with treatment team. On interview, patient is pleasant though confused. She is trying to play Solitaire and is seen sitting for some time entertained by this. Patient denies any SI, HI or AVH. Patient denies any adverse side effects related to psychotropic medications. Nursing staff report patient became agitated, exit-seeking and combative later in the evening. It has been difficult to get her to take medications so she has not had any antipsychotic today which is likely leading to increase in behavior seen tonight. Patient slept well overnight. VSS. Appetite limited. Psychotropic PRNs required in the past 24 hours: none. Start Time: 13:20 Stop Time: 13:40 Mental Status Exam Vitals: Last Vital Signs Temp 98.6 F 12/24/16 15:38 Pulse 105 H 12/24/16 15:38 Resp 20 12/24/16 15:38 BP 148/88 H 12/24/16 15:38 Pulse Ox 99 12/24/16 15:38 Height: 1.57 m Weight: 53.7 kg - Mental Status Exam Muscle Strength/Tone: Normal Dressing: Casual Grooming: Good Attitude: Uncooperative (intermittent) Motor Activity: Pacing (intermittent) Eye Contact: Fair Speech: Slowed, Other (some expressive aphasia suspected) Volume: Soft Rhythm: Mumbled Orientation: Oriented to person Mood: Neutral (labile affect) Rate of Thoughts: Delayed Thought Organization: Confused Associations: Flight of Ideas, Illogical Abstract Reasoning: Poor abstract reasoning Thought Content: Paranoia (decreased) Perception/Psychotic: Perception Normal Language: Naming Impaired Fund of Knowledge: Poor fund of knowledge Memory: Poor-immediate, Poor-recent, Poor-remote Suicidal Ideation: None Homicidal Ideation: None Insight: Poor Judgement: Poor Impulse Control: Poor (improving) - Laboratory Result Diagrams: 12/22/16 14:45 12/22/16 14:45 Assessment and Plan (1) Major neurocognitive disorder Problem details: mixed etiology (Alzheimer's and vascular), moderate, with behavioral disturbance Current visit: Yes Status: Acute Hospital Course Summary Disclaimer: The visit summary below is not to be considered part of the above Progress Note. Hospital Course: 12/13/16 08:03 IMPRESSION Acute psychosis - Paranoia with delusions Mildly elevated LFTs Elevated BP (poss r/t agitation) Dementia JUNIOR PLAN Agree with admission. Labs reviewed and compared with outside records - mild acute elevations in AST/ ALT - monitor - could be r/t med effect since all meds are new to her. BP was elevated last night, though this is when she was agitated - monitor this over the next 24-48 hours to see if she might need an antihypertensive. Check Vit B12 and prealbumin. Provide safe/supportive environment. Medically stable for [facility] activities. code status in chart - DNR - will need to clarify with family. 12/14/16 12:17 Remains confused and agitated at times. Continue current care and will discuss with family use of Depakote 12/15/16 21:17 Remains confused. Increase Seroquel to 50mg PO TID. 12/16/16 IMPRESSION Acute psychosis - Paranoia with delusions Mildly elevated LFTs - RESOLVED Elevated BP (poss r/t agitation) - IMPROVING Dementia JUNIOR PLAN CMP repeated - LFTs back to normal. Vit B12 was 313 which is low-normal. Start replacement. Prealbumin also low at 15.9 - will order nutritional supplements. VS labile ranging 100/63 this am but was 195/85 on 12/13 - cont to monitor. 12/16/16 17:08 Remains confused but a little better today. Continue current care 12/17/16 Psych: Continue current care though apppears patient continues to be impulsive, restless. Will again revisit use of Depakote with family, consider CT scan as she has not had one done per son. 12/18/16 Psych: Patient was aggressive/resistive with cares last night. Will increase Seroquel to 50mg PO BID (AM, afternoon) and 100mg PO q HS to target evening agitation. 12/19/16 Psych: Will increase Seroquel to 50mg in AM, 75mg in afternoon and 100mg q HS. Monitoring orthostatics. Improved with increased HS dose of antipsychotic. 12/20/16 12:00 Slightly improved but remains impulsive and confused with exit seeking behavior. Continue current care 12/21/16 11:12 Remains impulsive and agitated at times with exit seeking behavior 12/22/16 Check BMP and CBC to ensure no underlying rationale for fall. VSS. No obvious neuro deficits. Continue to provide safe environment; monitor post-fall. 12/22/16 Psych: Will switch from Seroquel to Risperdal to minimize any anticholinergic effect - will change to Risperdal 1mg PO BID and monitor response. PLAN-12/23/16: Avni continues to have significant behaviors including exit seeking, agitations and aggressions often requiring PRN medications. Continue psychiatric care per Dr. Knight and team. Seroquel was discontinued and Risperdal was initiated per Dr. Knight. Continue to provide safe and supportive environment. Due to patient's decreased safety awareness, she is at increased risk for falls. Monitor appropriately. CBC and BMP recheck on 12/22/16 and were unremarkable. Continue to monitor periodically throughout admission. UA culture shows no growth after 2 days. Patient remains afebrile. Continue to monitor for signs of infection. Overall, the patient is medically stable. 12/23/16 Psych: Continue current care as just changed to Risperdal last evening. Monitor mood, behavior and response to treatment. Patient continues to be significant fall risk due to impulsivity and relatively high activity level. 12/24/16 Psych: Will ask nursing to try to ensure adherence with antipsychotic as increased behavior this evening likely due to noncompliance. If not possible , may need to schedule IM medication if patient refuses. Asked nurse to give Haldol 1mg IM tonight and hold Risperdal; resume PO Risperdal BID tomorrow morning.
[2016-12-25] MEDS ORDERED: RisperiDONE 1 MG TABLET PO SCH (09:00)
[2016-12-25] MEDS: SERTRALINE 50 MG TABLET PO SCH (10:00)
[2016-12-25] MEDS: CYANOCOBALAMIN (B-12) 500mcg TABLET PO SCH (10:00)
[2016-12-25] MEDS ORDERED: HALOPERIDOL 5 MG/ML INJECTION IM PRN (16:49)
--- NOTE | 2016-12-25 16:54 | Neuropsych Progress Note ---
[facility] Subjective Date: 12/25/16 - Sujective/Severity of Illness Medications: Carbamide Peroxide (Debrox) 2 drops EACH EAR DAILY PRN PRN Reason: For ear wax removal Cyanocobalamin (Vit. B-12) 500 mcg PO DAILY [facility] Last Admin: 12/25/16 10:00 Dose: 500 mcg Haloperidol (Haldol) 0.5 mg PO Q6H PRN PRN Reason: Extreme agitation Last Admin: 12/22/16 08:24 Dose: 0.5 mg Haloperidol Lactate (Haldol) 1 mg IM 18 PRN Haloperidol Lactate (Haldol) 0.5 mg IM Q6H PRN PRN Reason: Extreme agitation Last Admin: 12/22/16 12:38 Dose: 0.5 mg Lorazepam (Ativan) 0.5 mg PO Q6H PRN PRN Reason: Extreme agitation Last Admin: 12/22/16 08:24 Dose: 0.5 mg Lorazepam (Ativan Inj) 0.5 mg IM Q6H PRN PRN Reason: Extreme agitation Last Admin: 12/23/16 14:45 Dose: 0.5 mg Magnesium Hydroxide (Mom) 30 ml PO DAILY PRN PRN Reason: Constipation Metoprolol Tartrate (Lopressor) 12.5 mg PO BIDWM [facility] Last Admin: 12/25/16 10:00 Dose: 12.5 mg Risperidone (Risperdal) 1 mg PO 18 LIZETH Sertraline HCl (Zoloft) 50 mg PO QAM [facility] Last Admin: 12/25/16 10:00 Dose: 50 mg Subjective: Patient seen and chart reviewed. Case discussed with treatment team. On interview, patient is pleasant though confused. She is pacing the unit today but is more steady and walking at a more relaxed pace. 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 Patient does not answer questions logically in regards to SI, HI, AVH, adverse side effects related to psychotropic medications. Nursing staff report patient has been calmer throughout today. She has difficulty with adherence (not due to being uncooperative but due to not understanding what to do, even with prompts.) Patient slept 8.25 overnight. VSS. Appetite limited. Psychotropic PRNs required in the past 24 hours: Haldol 1mg IM given last night as she did not take other meds. Start Time: 13:40 Stop Time: 14:00 Mental Status Exam Vitals: Last Vital Signs Temp 99.1 F 12/24/16 20:20 Pulse 98 12/24/16 20:20 Resp 22 12/24/16 20:20 BP 149/98 H 12/24/16 20:20 Pulse Ox 94 12/24/16 20:20 Height: 1.57 m Weight: 53.7 kg - Mental Status Exam Muscle Strength/Tone: Normal Dressing: Casual Grooming: Good Attitude: Cooperative Motor Activity: Pacing (slower, more steady today) Eye Contact: Fair Speech: Slowed, Other (some expressive aphasia suspected) Volume: Soft Rhythm: Mumbled Orientation: Oriented to person Mood: Euthymic Rate of Thoughts: Delayed Thought Organization: Confused Associations: Illogical Abstract Reasoning: Poor abstract reasoning Thought Content: Other (Poverty of thought) Perception/Psychotic: Perception Normal Language: Naming Impaired Fund of Knowledge: Poor fund of knowledge Memory: Poor-immediate, Poor-recent, Poor-remote Suicidal Ideation: None Homicidal Ideation: None Insight: Impaired Judgement: Impaired Impulse Control: Other (limited - improving) - Laboratory Result Diagrams: 12/22/16 14:45 12/22/16 14:45 Assessment and Plan (1) Major neurocognitive disorder Problem details: mixed etiology (Alzheimer's and vascular), moderate, with behavioral disturbance Current visit: Yes Status: Acute Hospital Course Summary Disclaimer: The visit summary below is not to be considered part of the above Progress Note. Hospital Course: 12/13/16 08:03 IMPRESSION Acute psychosis - Paranoia with delusions Mildly elevated LFTs Elevated BP (poss r/t agitation) Dementia JUNIOR PLAN Agree with admission. Labs reviewed and compared with outside records - mild acute elevations in AST/ ALT - monitor - could be r/t med effect since all meds are new to her. BP was elevated last night, though this is when she was agitated - monitor this over the next 24-48 hours to see if she might need an antihypertensive. Check Vit B12 and prealbumin. Provide safe/supportive environment. Medically stable for [facility] activities. code status in chart - DNR - will need to clarify with family. 12/14/16 12:17 Remains confused and agitated at times. Continue current care and will discuss with family use of Depakote 12/15/16 21:17 Remains confused. Increase Seroquel to 50mg PO TID. 12/16/16 IMPRESSION Acute psychosis - Paranoia with delusions Mildly elevated LFTs - RESOLVED Elevated BP (poss r/t agitation) - IMPROVING Dementia JUNIOR PLAN CMP repeated - LFTs back to normal. Vit B12 was 313 which is low-normal. Start replacement. Prealbumin also low at 15.9 - will order nutritional supplements. VS labile ranging 100/63 this am but was 195/85 on 12/13 - cont to monitor. 12/16/16 17:08 Remains confused but a little better today. Continue current care 12/17/16 Psych: Continue current care though apppears patient continues to be impulsive, restless. Will again revisit use of Depakote with family, consider CT scan as she has not had one done per son. 12/18/16 Psych: Patient was aggressive/resistive with cares last night. Will increase Seroquel to 50mg PO BID (AM, afternoon) and 100mg PO q HS to target evening agitation. 12/19/16 Psych: Will increase Seroquel to 50mg in AM, 75mg in afternoon and 100mg q HS. Monitoring orthostatics. Improved with increased HS dose of antipsychotic. 12/20/16 12:00 Slightly improved but remains impulsive and confused with exit seeking behavior. Continue current care 12/21/16 11:12 Remains impulsive and agitated at times with exit seeking behavior 12/22/16 Check BMP and CBC to ensure no underlying rationale for fall. VSS. No obvious neuro deficits. Continue to provide safe environment; monitor post-fall. 12/22/16 Psych: Will switch from Seroquel to Risperdal to minimize any anticholinergic effect - will change to Risperdal 1mg PO BID and monitor response. PLAN-12/23/16: Avni continues to have significant behaviors including exit seeking, agitations and aggressions often requiring PRN medications. Continue psychiatric care per Dr. Knight and team. Seroquel was discontinued and Risperdal was initiated per Dr. Knight. Continue to provide safe and supportive environment. Due to patient's decreased safety awareness, she is at increased risk for falls. Monitor appropriately. CBC and BMP recheck on 12/22/16 and were unremarkable. Continue to monitor periodically throughout admission. UA culture shows no growth after 2 days. Patient remains afebrile. Continue to monitor for signs of infection. Overall, the patient is medically stable. 12/23/16 Psych: Continue current care as just changed to Risperdal last evening. Monitor mood, behavior and response to treatment. Patient continues to be significant fall risk due to impulsivity and relatively high activity level. 12/24/16 Psych: Will ask nursing to try to ensure adherence with antipsychotic as increased behavior this evening likely due to noncompliance. If not possible , may need to schedule IM medication if patient refuses. Asked nurse to give Haldol 1mg IM tonight and hold Risperdal; resume PO Risperdal BID tomorrow morning. 12/25/16 Psych: Discussed care with son/DPOA and agreed to schedule Risperdal 1mg PO daily at 1800. If patient refuses PO medication, she is to be given Haldol 1mg IM instead. He would also like for her to be made a DNR; order entered. Continue care otherwise; monitor patient's mood, behavior and response to treatment.
[2016-12-25] MEDS: RisperiDONE 1 MG TABLET PO SCH (17:20)
[2016-12-26] MEDS: SERTRALINE 50 MG TABLET PO SCH (12:07)
[2016-12-26] MEDS: CYANOCOBALAMIN (B-12) 500mcg TABLET PO SCH (12:07)
[2016-12-26] MEDS: RisperiDONE 1 MG TABLET PO SCH (17:23)
--- NOTE | 2016-12-26 17:47 | Neuropsych Progress Note ---
[facility] Subjective Date: 12/26/16 - Sujective/Severity of Illness Medications: Carbamide Peroxide (Debrox) 2 drops EACH EAR DAILY PRN PRN Reason: For ear wax removal Cyanocobalamin (Vit. B-12) [address] [facility] Last Admin: 12/26/16 12:07 Dose: 500 mcg Haloperidol (Haldol) 0.5 mg PO Q6H PRN PRN Reason: Extreme agitation Last Admin: 12/22/16 08:24 Dose: 0.5 mg Haloperidol Lactate (Haldol) 1 mg IM 18 PRN Haloperidol Lactate (Haldol) 0.5 mg IM Q6H PRN PRN Reason: Extreme agitation Last Admin: 12/22/16 12:38 Dose: 0.5 mg Lorazepam (Ativan) 0.5 mg PO Q6H PRN PRN Reason: Extreme agitation Last Admin: 12/22/16 08:24 Dose: 0.5 mg Lorazepam (Ativan Inj) 0.5 mg IM Q6H PRN PRN Reason: Extreme agitation Last Admin: 12/23/16 14:45 Dose: 0.5 mg Magnesium Hydroxide (Mom) 30 ml PO DAILY PRN PRN Reason: Constipation Metoprolol Tartrate (Lopressor) 12.[address] [facility] Last Admin: 12/26/16 17:23 Dose: 12.5 mg Risperidone (Risperdal) [address] [facility] Last Admin: 12/26/16 17:23 Dose: 1 mg Sertraline HCl (Zoloft) [address] [facility] Last Admin: 12/26/16 12:07 Dose: 50 mg Subjective: Patient seen and chart reviewed. Case discussed with treatment team. On interview, patient is eating breakfast and is pleasantly confused. She offers me a bite of her food. Patient does not answer most questions logically but no concern for SI, HI. Nursing staff report Risperdal was effective when given at 1800. Will continue IM Haldol if patient refuses PO Risperdal. Patient does better if given pills in small groups. Patient slept 7 hours overnight. VSS. Appetite limited. Psychotropic PRNs required in the past 24 hours: none. Start Time: 07:40 Stop Time: 08:00 Mental Status Exam Vitals: Last Vital Signs Temp 98 F 12/26/16 08:00 Pulse 118 H 12/26/16 08:00 Resp 18 12/25/16 21:01 BP 111/69 12/26/16 08:00 Pulse Ox 100 12/26/16 08:00 Height: 1.57 m Weight: 53.7 kg - Mental Status Exam Muscle Strength/Tone: Normal Dressing: Casual Grooming: Good Attitude: Cooperative Motor Activity: Normal (during interview - paces intermittently through day) Eye Contact: Fair Speech: Slowed, Other (some expressive aphasia suspected) Volume: Soft Rhythm: Mumbled Orientation: Oriented to person Mood: Euthymic Rate of Thoughts: Delayed Thought Organization: Confused Associations: Illogical Abstract Reasoning: Poor abstract reasoning Thought Content: Other (Poverty of thought) Perception/Psychotic: Perception Normal Language: Naming Impaired Fund of Knowledge: Poor fund of knowledge Memory: Poor-immediate, Poor-recent, Poor-remote Suicidal Ideation: None Homicidal Ideation: None Insight: Impaired Judgement: Impaired Impulse Control: Other (limited - improving) - Laboratory Result Diagrams: 12/22/16 14:45 12/22/16 14:45 Assessment and Plan (1) Major neurocognitive disorder Problem details: mixed etiology (Alzheimer's and vascular), moderate, with behavioral disturbance Current visit: Yes Status: Acute Hospital Course Summary Disclaimer: The visit summary below is not to be considered part of the above Progress Note. Hospital Course: 12/13/16 08:03 IMPRESSION Acute psychosis - Paranoia with delusions Mildly elevated LFTs Elevated BP (poss r/t agitation) Dementia JUNIOR PLAN Agree with admission. Labs reviewed and compared with outside records - mild acute elevations in AST/ ALT - monitor - could be r/t med effect since all meds are new to her. BP was elevated last night, though this is when she was agitated - monitor this over the next 24-48 hours to see if she might need an antihypertensive. Check Vit B12 and prealbumin. Provide safe/supportive environment. Medically stable for [facility] activities. code status in chart - DNR - will need to clarify with family. 12/14/16 12:17 Remains confused and agitated at times. Continue current care and will discuss with family use of Depakote 12/15/16 21:17 Remains confused. Increase Seroquel to 50mg PO TID. 12/16/16 IMPRESSION Acute psychosis - Paranoia with delusions Mildly elevated LFTs - RESOLVED Elevated BP (poss r/t agitation) - IMPROVING Dementia JUNIOR PLAN CMP repeated - LFTs back to normal. Vit B12 was 313 which is low-normal. Start replacement. Prealbumin also low at 15.9 - will order nutritional supplements. VS labile ranging 100/63 this am but was 195/85 on 12/13 - cont to monitor. 12/16/16 17:08 Remains confused but a little better today. Continue current care 12/17/16 Psych: Continue current care though apppears patient continues to be impulsive, restless. Will again revisit use of Depakote with family, consider CT scan as she has not had one done per son. 12/18/16 Psych: Patient was aggressive/resistive with cares last night. Will increase Seroquel to 50mg PO BID (AM, afternoon) and 100mg PO q HS to target evening agitation. 12/19/16 Psych: Will increase Seroquel to 50mg in AM, 75mg in afternoon and 100mg q HS. Monitoring orthostatics. Improved with increased HS dose of antipsychotic. 12/20/16 12:00 Slightly improved but remains impulsive and confused with exit seeking behavior. Continue current care 12/21/16 11:12 Remains impulsive and agitated at times with exit seeking behavior 12/22/16 Check BMP and CBC to ensure no underlying rationale for fall. VSS. No obvious neuro deficits. Continue to provide safe environment; monitor post-fall. 12/22/16 Psych: Will switch from Seroquel to Risperdal to minimize any anticholinergic effect - will change to Risperdal 1mg PO BID and monitor response. PLAN-12/23/16: Avni continues to have significant behaviors including exit seeking, agitations and aggressions often requiring PRN medications. Continue psychiatric care per Dr. Knight and team. Seroquel was discontinued and Risperdal was initiated per Dr. Knight. Continue to provide safe and supportive environment. Due to patient's decreased safety awareness, she is at increased risk for falls. Monitor appropriately. CBC and BMP recheck on 12/22/16 and were unremarkable. Continue to monitor periodically throughout admission. UA culture shows no growth after 2 days. Patient remains afebrile. Continue to monitor for signs of infection. Overall, the patient is medically stable. 12/23/16 Psych: Continue current care as just changed to Risperdal last evening. Monitor mood, behavior and response to treatment. Patient continues to be significant fall risk due to impulsivity and relatively high activity level. 12/24/16 Psych: Will ask nursing to try to ensure adherence with antipsychotic as increased behavior this evening likely due to noncompliance. If not possible , may need to schedule IM medication if patient refuses. Asked nurse to give Haldol 1mg IM tonight and hold Risperdal; resume PO Risperdal BID tomorrow morning. 12/25/16 Psych: Discussed care with son/DPOA and agreed to schedule Risperdal 1mg PO daily at 1800. If patient refuses PO medication, she is to be given Haldol 1mg IM instead. He would also like for her to be made a DNR; order entered. Continue care otherwise; monitor patient's mood, behavior and response to treatment. 12/26/16 Psych: Will continue current care for time being - may consider adding on small AM dose of Risperdal if patient has any daytime agitation.
[2016-12-26] MEDS: ACETAMINOPHEN 325 MG TABLET PO PRN (20:18)
[2016-12-27] MEDS: HALOPERIDOL 5 MG/ML INJECTION IM PRN ×2 (08:06→14:06)
[2016-12-27] MEDS: SERTRALINE 50 MG TABLET PO SCH (11:56)
[2016-12-27] MEDS: CYANOCOBALAMIN (B-12) 500mcg TABLET PO SCH (11:56)
--- NOTE | 2016-12-27 14:34 | Neuropsych Progress Note ---
[facility] Subjective Date: 12/27/16 - Sujective/Severity of Illness Medications: Acetaminophen (Tylenol) 325 - 650 mg PO Q5H PRN PRN Reason: Discomfort Last Admin: 12/26/16 20:18 Dose: 650 mg Carbamide Peroxide (Debrox) 2 drops EACH EAR DAILY PRN PRN Reason: For ear wax removal Cyanocobalamin (Vit. B-12) 500 mcg PO DAILY [facility] Last Admin: 12/27/16 11:56 Dose: Not Given Haloperidol (Haldol) 0.5 mg PO Q6H PRN PRN Reason: Extreme agitation Last Admin: 12/22/16 08:24 Dose: 0.5 mg Haloperidol Lactate (Haldol) 1 mg IM 18 PRN Haloperidol Lactate (Haldol) 0.5 mg IM Q6H PRN PRN Reason: Extreme agitation Last Admin: 12/27/16 14:06 Dose: 0.5 mg Lorazepam (Ativan) 0.5 mg PO Q6H PRN PRN Reason: Extreme agitation Last Admin: 12/22/16 08:24 Dose: 0.5 mg Lorazepam (Ativan Inj) 0.5 mg IM Q6H PRN PRN Reason: Extreme agitation Last Admin: 12/27/16 08:07 Dose: 0.5 mg Magnesium Hydroxide (Mom) 30 ml PO DAILY PRN PRN Reason: Constipation Metoprolol Tartrate (Lopressor) 12.5 mg PO BIDWM [facility] Last Admin: 12/27/16 11:56 Dose: Not Given Risperidone (Risperdal) 1 mg PO 18 [facility] Last Admin: 12/26/16 17:23 Dose: 1 mg Risperidone (Risperdal) 0.5 mg PO DAILY [facility] Sertraline HCl (Zoloft) 50 mg PO QAM [facility] Last Admin: 12/27/16 11:56 Dose: Not Given Subjective: Pt seen and chart examined. Nursing reports pt can be agitated and exit seeking at times and difficult to redirect. Pt was given haldol and Ativan this AM which was helpful. On face to face the pt is pleasant and sitting in the day room but is confused. She is only able to tell me her name and where she went to college. She does not answer questions directly. Does not appear to be in pain. Start Time: 11:00 Stop Time: 11:15 Mental Status Exam Vitals: Last Vital Signs Temp 97.7 F 12/27/16 08:00 Pulse 93 12/27/16 08:00 Resp 16 12/27/16 08:00 BP 109/60 12/27/16 08:00 Pulse Ox 98 12/27/16 08:00 Height: 1.57 m Weight: 53.7 kg - Mental Status Exam Muscle Strength/Tone: Normal Dressing: Casual Grooming: Good Attitude: Cooperative Motor Activity: Normal (during interview - paces intermittently through day) Eye Contact: Fair Speech: Slowed, Other (some expressive aphasia suspected) Volume: Soft Rhythm: Mumbled Orientation: Oriented to person Mood: Euthymic Rate of Thoughts: Delayed Thought Organization: Confused Associations: Illogical Abstract Reasoning: Poor abstract reasoning Thought Content: Other (Poverty of thought) Perception/Psychotic: Perception Normal Language: Naming Impaired Fund of Knowledge: Poor fund of knowledge Memory: Poor-immediate, Poor-recent, Poor-remote Suicidal Ideation: None Homicidal Ideation: None Insight: Impaired Judgement: Impaired Impulse Control: Other (limited - improving) - Laboratory Result Diagrams: 12/22/16 14:45 12/22/16 14:45 Assessment and Plan (1) Major neurocognitive disorder Problem details: mixed etiology (Alzheimer's and vascular), moderate, with behavioral disturbance Current visit: Yes Status: Acute Hospital Course Summary Disclaimer: The visit summary below is not to be considered part of the above Progress Note. Hospital Course: 12/13/16 08:03 IMPRESSION Acute psychosis - Paranoia with delusions Mildly elevated LFTs Elevated BP (poss r/t agitation) Dementia JUNIOR PLAN Agree with admission. Labs reviewed and compared with outside records - mild acute elevations in AST/ ALT - monitor - could be r/t med effect since all meds are new to her. BP was elevated last night, though this is when she was agitated - monitor this over the next 24-48 hours to see if she might need an antihypertensive. Check Vit B12 and prealbumin. Provide safe/supportive environment. Medically stable for [facility] activities. code status in chart - DNR - will need to clarify with family. 12/14/16 12:17 Remains confused and agitated at times. Continue current care and will discuss with family use of Depakote 12/15/16 21:17 Remains confused. Increase Seroquel to 50mg PO TID. 12/16/16 IMPRESSION Acute psychosis - Paranoia with delusions Mildly elevated LFTs - RESOLVED Elevated BP (poss r/t agitation) - IMPROVING Dementia JUNIOR PLAN CMP repeated - LFTs back to normal. Vit B12 was 313 which is low-normal. Start replacement. Prealbumin also low at 15.9 - will order nutritional supplements. VS labile ranging 100/63 this am but was 195/85 on 12/13 - cont to monitor. 12/16/16 17:08 Remains confused but a little better today. Continue current care 12/17/16 Psych: Continue current care though apppears patient continues to be impulsive, restless. Will again revisit use of Depakote with family, consider CT scan as she has not had one done per son. 12/18/16 Psych: Patient was aggressive/resistive with cares last night. Will increase Seroquel to 50mg PO BID (AM, afternoon) and 100mg PO q HS to target evening agitation. 12/19/16 Psych: Will increase Seroquel to 50mg in AM, 75mg in afternoon and 100mg q HS. Monitoring orthostatics. Improved with increased HS dose of antipsychotic. 12/20/16 12:00 Slightly improved but remains impulsive and confused with exit seeking behavior. Continue current care 12/21/16 11:12 Remains impulsive and agitated at times with exit seeking behavior 12/22/16 Check BMP and CBC to ensure no underlying rationale for fall. VSS. No obvious neuro deficits. Continue to provide safe environment; monitor post-fall. 12/22/16 Psych: Will switch from Seroquel to Risperdal to minimize any anticholinergic effect - will change to Risperdal 1mg PO BID and monitor response. PLAN-12/23/16: Avni continues to have significant behaviors including exit seeking, agitations and aggressions often requiring PRN medications. Continue psychiatric care per Dr. Knight and team. Seroquel was discontinued and Risperdal was initiated per Dr. Knight. Continue to provide safe and supportive environment. Due to patient's decreased safety awareness, she is at increased risk for falls. Monitor appropriately. CBC and BMP recheck on 12/22/16 and were unremarkable. Continue to monitor periodically throughout admission. UA culture shows no growth after 2 days. Patient remains afebrile. Continue to monitor for signs of infection. Overall, the patient is medically stable. 12/23/16 Psych: Continue current care as just changed to Risperdal last evening. Monitor mood, behavior and response to treatment. Patient continues to be significant fall risk due to impulsivity and relatively high activity level. 12/24/16 Psych: Will ask nursing to try to ensure adherence with antipsychotic as increased behavior this evening likely due to noncompliance. If not possible , may need to schedule IM medication if patient refuses. Asked nurse to give Haldol 1mg IM tonight and hold Risperdal; resume PO Risperdal BID tomorrow morning. 12/25/16 Psych: Discussed care with son/DPOA and agreed to schedule Risperdal 1mg PO daily at 1800. If patient refuses PO medication, she is to be given Haldol 1mg IM instead. He would also like for her to be made a DNR; order entered. Continue care otherwise; monitor patient's mood, behavior and response to treatment. 12/26/16 Psych: Will continue current care for time being - may consider adding on small AM dose of Risperdal if patient has any daytime agitation. 12/27/16 14:34 Agitated and impulsive at times. Will start Risperdal 0.5mg daily
[2016-12-27] MEDS: RisperiDONE 1 MG TABLET PO SCH (18:35)
--- NOTE | 2016-12-28 11:06 | Neuropsych Progress Note ---
[facility] Subjective Date: 12/28/16 - Sujective/Severity of Illness Medications: Acetaminophen (Tylenol) 325 - 650 mg PO Q5H PRN PRN Reason: Discomfort Last Admin: 12/26/16 20:18 Dose: 650 mg Carbamide Peroxide (Debrox) 2 drops EACH EAR DAILY PRN PRN Reason: For ear wax removal Cyanocobalamin (Vit. B-12) 500 mcg PO DAILY [facility] Last Admin: 12/27/16 11:56 Dose: Not Given Haloperidol (Haldol) 0.5 mg PO Q6H PRN PRN Reason: Extreme agitation Last Admin: 12/22/16 08:24 Dose: 0.5 mg Haloperidol Lactate (Haldol) 1 mg IM 18 PRN Haloperidol Lactate (Haldol) 0.5 mg IM Q6H PRN PRN Reason: Extreme agitation Last Admin: 12/27/16 14:06 Dose: 0.5 mg Lorazepam (Ativan) 0.5 mg PO Q6H PRN PRN Reason: Extreme agitation Last Admin: 12/22/16 08:24 Dose: 0.5 mg Lorazepam (Ativan Inj) 0.5 mg IM Q6H PRN PRN Reason: Extreme agitation Last Admin: 12/27/16 15:01 Dose: 0.5 mg Magnesium Hydroxide (Mom) 30 ml PO DAILY PRN PRN Reason: Constipation Metoprolol Tartrate (Lopressor) 12.5 mg PO BIDWM [facility] Last Admin: 12/27/16 16:48 Dose: 12.5 mg Risperidone (Risperdal) 1 mg PO 18 [facility] Last Admin: 12/27/16 18:35 Dose: 1 mg Risperidone (Risperdal) 0.5 mg PO DAILY [facility] Sertraline HCl (Zoloft) 50 mg PO QAM [facility] Last Admin: 12/27/16 11:56 Dose: Not Given Subjective: Pt seen and chart examined. Nursing reports pt can be agitated and exit seeking at times. Pt received haldol and later Ativan yesterday evening for agitation. Pt did sleep well and has a good appetite. On face to face the pt is resting quietly in bed. She is only oriented to self. Denies pain and does not appear in any distress. Start Time: 10:30 Stop Time: 10:45 Mental Status Exam Vitals: Last Vital Signs Temp 97.8 F 12/27/16 21:06 Pulse 72 12/27/16 21:06 Resp 14 12/27/16 21:06 BP 122/68 12/27/16 21:06 Pulse Ox 99 12/27/16 16:00 Height: 1.57 m Weight: 53.7 kg - Mental Status Exam Muscle Strength/Tone: Normal Dressing: Casual Grooming: Good Attitude: Cooperative Motor Activity: Normal (during interview - paces intermittently through day) Eye Contact: Fair Speech: Slowed, Other (some expressive aphasia suspected) Volume: Soft Rhythm: Mumbled Orientation: Oriented to person Mood: Euthymic Rate of Thoughts: Delayed Thought Organization: Confused Associations: Illogical Abstract Reasoning: Poor abstract reasoning Thought Content: Other (Poverty of thought) Perception/Psychotic: Perception Normal Language: Naming Impaired Fund of Knowledge: Poor fund of knowledge Memory: Poor-immediate, Poor-recent, Poor-remote Suicidal Ideation: None Homicidal Ideation: None Insight: Impaired Judgement: Impaired Impulse Control: Other (limited - improving) - Laboratory Result Diagrams: 12/22/16 14:45 12/22/16 14:45 Assessment and Plan (1) Major neurocognitive disorder Problem details: mixed etiology (Alzheimer's and vascular), moderate, with behavioral disturbance Current visit: Yes Status: Acute Hospital Course Summary Disclaimer: The visit summary below is not to be considered part of the above Progress Note. Hospital Course: 12/13/16 08:03 IMPRESSION Acute psychosis - Paranoia with delusions Mildly elevated LFTs Elevated BP (poss r/t agitation) Dementia JUNIOR PLAN Agree with admission. Labs reviewed and compared with outside records - mild acute elevations in AST/ ALT - monitor - could be r/t med effect since all meds are new to her. BP was elevated last night, though this is when she was agitated - monitor this over the next 24-48 hours to see if she might need an antihypertensive. Check Vit B12 and prealbumin. Provide safe/supportive environment. Medically stable for [facility] activities. code status in chart - DNR - will need to clarify with family. 12/14/16 12:17 Remains confused and agitated at times. Continue current care and will discuss with family use of Depakote 12/15/16 21:17 Remains confused. Increase Seroquel to 50mg PO TID. 12/16/16 IMPRESSION Acute psychosis - Paranoia with delusions Mildly elevated LFTs - RESOLVED Elevated BP (poss r/t agitation) - IMPROVING Dementia JUNIOR PLAN CMP repeated - LFTs back to normal. Vit B12 was 313 which is low-normal. Start replacement. Prealbumin also low at 15.9 - will order nutritional supplements. VS labile ranging 100/63 this am but was 195/85 on 12/13 - cont to monitor. 12/16/16 17:08 Remains confused but a little better today. Continue current care 12/17/16 Psych: Continue current care though apppears patient continues to be impulsive, restless. Will again revisit use of Depakote with family, consider CT scan as she has not had one done per son. 12/18/16 Psych: Patient was aggressive/resistive with cares last night. Will increase Seroquel to 50mg PO BID (AM, afternoon) and 100mg PO q HS to target evening agitation. 12/19/16 Psych: Will increase Seroquel to 50mg in AM, 75mg in afternoon and 100mg q HS. Monitoring orthostatics. Improved with increased HS dose of antipsychotic. 12/20/16 12:00 Slightly improved but remains impulsive and confused with exit seeking behavior. Continue current care 12/21/16 11:12 Remains impulsive and agitated at times with exit seeking behavior 12/22/16 Check BMP and CBC to ensure no underlying rationale for fall. VSS. No obvious neuro deficits. Continue to provide safe environment; monitor post-fall. 12/22/16 Psych: Will switch from Seroquel to Risperdal to minimize any anticholinergic effect - will change to Risperdal 1mg PO BID and monitor response. PLAN-12/23/16: Avni continues to have significant behaviors including exit seeking, agitations and aggressions often requiring PRN medications. Continue psychiatric care per Dr. Knight and team. Seroquel was discontinued and Risperdal was initiated per Dr. Knight. Continue to provide safe and supportive environment. Due to patient's decreased safety awareness, she is at increased risk for falls. Monitor appropriately. CBC and BMP recheck on 12/22/16 and were unremarkable. Continue to monitor periodically throughout admission. UA culture shows no growth after 2 days. Patient remains afebrile. Continue to monitor for signs of infection. Overall, the patient is medically stable. 12/23/16 Psych: Continue current care as just changed to Risperdal last evening. Monitor mood, behavior and response to treatment. Patient continues to be significant fall risk due to impulsivity and relatively high activity level. 12/24/16 Psych: Will ask nursing to try to ensure adherence with antipsychotic as increased behavior this evening likely due to noncompliance. If not possible , may need to schedule IM medication if patient refuses. Asked nurse to give Haldol 1mg IM tonight and hold Risperdal; resume PO Risperdal BID tomorrow morning. 12/25/16 Psych: Discussed care with son/DPOA and agreed to schedule Risperdal 1mg PO daily at 1800. If patient refuses PO medication, she is to be given Haldol 1mg IM instead. He would also like for her to be made a DNR; order entered. Continue care otherwise; monitor patient's mood, behavior and response to treatment. 12/26/16 Psych: Will continue current care for time being - may consider adding on small AM dose of Risperdal if patient has any daytime agitation. 12/27/16 14:34 Agitated and impulsive at times. Will start Risperdal 0.5mg daily 12/28/16 11:06 Agitated yesterday afternoon. Risperdal 0.5mg daily started today
[2016-12-28] MEDS: CYANOCOBALAMIN (B-12) 500mcg TABLET PO SCH (12:56)
[2016-12-28] MEDS: RisperiDONE 0.5 MG TABLET PO SCH (13:07)
[2016-12-28] MEDS: SERTRALINE 50 MG TABLET PO SCH (13:08)
[2016-12-28] MEDS: HALOPERIDOL 5 MG/ML INJECTION IM PRN (13:18)
[2016-12-28] MEDS ORDERED: KETOROLAC 15 MG/ML INJECTION IM ONE (13:22)
[2016-12-28] MEDS ORDERED: ACETAMINOPHEN 650 MG SUPPOSITORY PR PRN (13:23)
[2016-12-28] MEDS: RisperiDONE 1 MG TABLET PO SCH (17:18)
[2016-12-29] MEDS: CYANOCOBALAMIN (B-12) 500mcg TABLET PO SCH (09:54)
[2016-12-29] MEDS: RisperiDONE 0.5 MG TABLET PO SCH (09:54)
[2016-12-29] MEDS: SERTRALINE 50 MG TABLET PO SCH (09:54)
[2016-12-29] MEDS: RisperiDONE 1 MG TABLET PO SCH (18:27)
--- NOTE | 2016-12-29 19:09 | Neuropsych Progress Note ---
[facility] Subjective Date: 12/29/16 - Sujective/Severity of Illness Medications: Acetaminophen (Tylenol) 325 - 650 mg PO Q5H PRN PRN Reason: Discomfort Last Admin: 12/26/16 20:18 Dose: 650 mg Acetaminophen (Tylenol Supp) 650 mg [place] Q5H PRN PRN Reason: Pain Carbamide Peroxide (Debrox) 2 drops EACH EAR DAILY PRN PRN Reason: For ear wax removal Cyanocobalamin (Vit. B-12) 500 mcg PO DAILY [facility] Last Admin: 12/29/16 09:54 Dose: 500 mcg Haloperidol (Haldol) 0.5 mg PO Q6H PRN PRN Reason: Extreme agitation Last Admin: 12/22/16 08:24 Dose: 0.5 mg Haloperidol Lactate (Haldol) 1 mg IM 18 PRN Haloperidol Lactate (Haldol) 0.5 mg IM Q6H PRN PRN Reason: Extreme agitation Last Admin: 12/28/16 13:18 Dose: 0.5 mg Lorazepam (Ativan) 0.5 mg PO Q6H PRN PRN Reason: Extreme agitation Last Admin: 12/22/16 08:24 Dose: 0.5 mg Lorazepam (Ativan Inj) 0.5 mg IM Q6H PRN PRN Reason: Extreme agitation Last Admin: 12/28/16 13:18 Dose: 0.5 mg Magnesium Hydroxide (Mom) 30 ml PO DAILY PRN PRN Reason: Constipation Metoprolol Tartrate (Lopressor) 12.5 mg PO BIDWM [facility] Last Admin: 12/29/16 18:27 Dose: 12.5 mg Risperidone (Risperdal) 1 mg PO 18 [facility] Last Admin: 12/29/16 18:27 Dose: 1 mg Risperidone (Risperdal) 0.5 mg PO DAILY [facility] Last Admin: 12/29/16 09:54 Dose: 0.5 mg Sertraline HCl (Zoloft) 50 mg PO QAM [facility] Last Admin: 12/29/16 09:54 Dose: 50 mg Subjective: Pt seen and chart examined. Nursing reports pt has done better today. Does spit her meds out at times and paces but has been redirectable and no aggression noted. On face to face the pt is pleasant but confused. She is only oriented to self. Denies pain. Tolerating meds Start Time: 17:45 Stop Time: 18:00 Mental Status Exam Vitals: Last Vital Signs Temp 97.6 F 12/29/16 16:00 Pulse 100 12/29/16 16:00 Resp 16 12/29/16 16:00 BP 160/94 H 12/29/16 16:00 Pulse Ox 97 12/29/16 16:00 Height: 1.57 m Weight: 53.7 kg - Mental Status Exam Muscle Strength/Tone: Normal Dressing: Casual Grooming: Good Attitude: Cooperative Motor Activity: Normal (during interview - paces intermittently through day) Eye Contact: Fair Speech: Slowed, Other (some expressive aphasia suspected) Volume: Soft Rhythm: Mumbled Orientation: Oriented to person Mood: Euthymic Rate of Thoughts: Delayed Thought Organization: Confused Associations: Illogical Abstract Reasoning: Poor abstract reasoning Thought Content: Other (Poverty of thought) Perception/Psychotic: Perception Normal Language: Naming Impaired Fund of Knowledge: Poor fund of knowledge Memory: Poor-immediate, Poor-recent, Poor-remote Suicidal Ideation: None Homicidal Ideation: None Insight: Impaired Judgement: Impaired Impulse Control: Other (limited - improving) - Laboratory Result Diagrams: 12/29/16 06:40 12/29/16 06:40 Laboratory Results - last 24 hr 12/29/16 12/29/16 06:40 06:40 WBC 4.8 RBC 4.28 Hgb 12.9 Hct 40.0 MCV 93.5 MCH 30.1 MCHC 32.3 RDW Std Deviation 43.8 Plt Count 170 MPV 9.9 Immature Gran % (Auto) 0.0 Neut % (Auto) 60.0 Lymph % (Auto) 31.2 [place] % (Auto) 6.5 Eos % (Auto) 2.1 Baso % (Auto) 0.2 Neut # (Auto) 2.9 Lymph # (Auto) 1.5 [place] # (Auto) 0.3 Eos # (Auto) 0.1 Baso # (Auto) 0.0 Abs Immat Gran (auto) 0.00 Turbidity < 20 Sodium 140 Potassium 3.9 Chloride 103 Carbon Dioxide 29 Anion Gap 8 BUN 26.0 H Creatinine 0.7 GFR Calculation 82 BUN/Creatinine Ratio 37 H Glucose 91 Calculated Osmolality 274 Calcium 8.7 Icterus Index < 2 Specimen Hemolysis < 15 Assessment and Plan (1) Major neurocognitive disorder Problem details: mixed etiology (Alzheimer's and vascular), moderate, with behavioral disturbance Current visit: Yes Status: Acute Hospital Course Summary Disclaimer: The visit summary below is not to be considered part of the above Progress Note. Hospital Course: 12/13/16 08:03 IMPRESSION Acute psychosis - Paranoia with delusions Mildly elevated LFTs Elevated BP (poss r/t agitation) Dementia JUNIOR PLAN Agree with admission. Labs reviewed and compared with outside records - mild acute elevations in AST/ ALT - monitor - could be r/t med effect since all meds are new to her. BP was elevated last night, though this is when she was agitated - monitor this over the next 24-48 hours to see if she might need an antihypertensive. Check Vit B12 and prealbumin. Provide safe/supportive environment. Medically stable for [facility] activities. code status in chart - DNR - will need to clarify with family. 12/14/16 12:17 Remains confused and agitated at times. Continue current care and will discuss with family use of Depakote 12/15/16 21:17 Remains confused. Increase Seroquel to 50mg PO TID. 12/16/16 IMPRESSION Acute psychosis - Paranoia with delusions Mildly elevated LFTs - RESOLVED Elevated BP (poss r/t agitation) - IMPROVING Dementia JUNIOR PLAN CMP repeated - LFTs back to normal. Vit B12 was 313 which is low-normal. Start replacement. Prealbumin also low at 15.9 - will order nutritional supplements. VS labile ranging 100/63 this am but was 195/85 on 12/13 - cont to monitor. 12/16/16 17:08 Remains confused but a little better today. Continue current care 12/17/16 Psych: Continue current care though apppears patient continues to be impulsive, restless. Will again revisit use of Depakote with family, consider CT scan as she has not had one done per son. 12/18/16 Psych: Patient was aggressive/resistive with cares last night. Will increase Seroquel to 50mg PO BID (AM, afternoon) and 100mg PO q HS to target evening agitation. 12/19/16 Psych: Will increase Seroquel to 50mg in AM, 75mg in afternoon and 100mg q HS. Monitoring orthostatics. Improved with increased HS dose of antipsychotic. 12/20/16 12:00 Slightly improved but remains impulsive and confused with exit seeking behavior. Continue current care 12/21/16 11:12 Remains impulsive and agitated at times with exit seeking behavior 12/22/16 Check BMP and CBC to ensure no underlying rationale for fall. VSS. No obvious neuro deficits. Continue to provide safe environment; monitor post-fall. 12/22/16 Psych: Will switch from Seroquel to Risperdal to minimize any anticholinergic effect - will change to Risperdal 1mg PO BID and monitor response. PLAN-12/23/16: Avni continues to have significant behaviors including exit seeking, agitations and aggressions often requiring PRN medications. Continue psychiatric care per Dr. Knight and team. Seroquel was discontinued and Risperdal was initiated per Dr. Knight. Continue to provide safe and supportive environment. Due to patient's decreased safety awareness, she is at increased risk for falls. Monitor appropriately. CBC and BMP recheck on 12/22/16 and were unremarkable. Continue to monitor periodically throughout admission. UA culture shows no growth after 2 days. Patient remains afebrile. Continue to monitor for signs of infection. Overall, the patient is medically stable. 12/23/16 Psych: Continue current care as just changed to Risperdal last evening. Monitor mood, behavior and response to treatment. Patient continues to be significant fall risk due to impulsivity and relatively high activity level. 12/24/16 Psych: Will ask nursing to try to ensure adherence with antipsychotic as increased behavior this evening likely due to noncompliance. If not possible , may need to schedule IM medication if patient refuses. Asked nurse to give Haldol 1mg IM tonight and hold Risperdal; resume PO Risperdal BID tomorrow morning. 12/25/16 Psych: Discussed care with son/DPOA and agreed to schedule Risperdal 1mg PO daily at 1800. If patient refuses PO medication, she is to be given Haldol 1mg IM instead. He would also like for her to be made a DNR; order entered. Continue care otherwise; monitor patient's mood, behavior and response to treatment. 12/26/16 Psych: Will continue current care for time being - may consider adding on small AM dose of Risperdal if patient has any daytime agitation. 12/27/16 14:34 Agitated and impulsive at times. Will start Risperdal 0.5mg daily 12/28/16 11:06 Agitated yesterday afternoon. Risperdal 0.5mg daily started today 12/29/16 19:08 Better today. Continue current care
[2016-12-30] MEDS: CYANOCOBALAMIN (B-12) 500mcg TABLET PO SCH (08:14)
[2016-12-30] MEDS: SERTRALINE 50 MG TABLET PO SCH (08:14)
[2016-12-30] MEDS: RisperiDONE 0.5 MG TABLET PO SCH (08:14)
[2016-12-30] MEDS: RisperiDONE 1 MG TABLET PO SCH (17:11)
--- NOTE | 2016-12-30 21:15 | Neuropsych Progress Note ---
[facility] Subjective Date: 12/30/16 - Sujective/Severity of Illness Medications: Acetaminophen (Tylenol) 325 - 650 mg PO Q5H PRN PRN Reason: Discomfort Last Admin: 12/26/16 20:18 Dose: 650 mg Acetaminophen (Tylenol Supp) 650 mg NE Q5H PRN PRN Reason: Pain Carbamide Peroxide (Debrox) 2 drops EACH EAR DAILY PRN PRN Reason: For ear wax removal Cyanocobalamin (Vit. B-12) 500 mcg PO DAILY [facility] [place] Last Admin: 12/30/16 08:14 Dose: 500 mcg Haloperidol (Haldol) 0.5 mg PO Q6H PRN PRN Reason: Extreme agitation Last Admin: 12/22/16 08:24 Dose: 0.5 mg Haloperidol Lactate (Haldol) 1 mg IM 18 PRN Haloperidol Lactate (Haldol) 0.5 mg IM Q6H PRN PRN Reason: Extreme agitation Last Admin: 12/28/16 13:18 Dose: 0.5 mg Lorazepam (Ativan) 0.5 mg PO Q6H PRN PRN Reason: Extreme agitation Last Admin: 12/22/16 08:24 Dose: 0.5 mg Lorazepam (Ativan Inj) 0.5 mg IM Q6H PRN PRN Reason: Extreme agitation Last Admin: 12/28/16 13:18 Dose: 0.5 mg Magnesium Hydroxide (Mom) 30 ml PO DAILY PRN PRN Reason: Constipation Metoprolol Tartrate (Lopressor) 12.5 mg PO BIDWM [facility] [place] Last Admin: 12/30/16 17:11 Dose: 12.5 mg Risperidone (Risperdal) 1 mg PO 18 [facility] [place] Last Admin: 12/30/16 17:11 Dose: 1 mg Risperidone (Risperdal) 0.5 mg PO DAILY [facility] [place] Last Admin: 12/30/16 08:14 Dose: 0.5 mg Sertraline HCl (Zoloft) 50 mg PO QAM [facility] [place] Last Admin: 12/30/16 08:14 Dose: 50 mg Subjective: Patient seen and chart reviewed. Case discussed with treatment team. On interview, patient is pleasantly confused, and calm throughout conversation. She is sitting in dayroom "socializing" with staff and has been able to sit for longer periods, playing cards or games. Patient denies any SI, HI or AVH. Patient denies any adverse side effects related to psychotropic medications. Nursing staff report patient has been more calm and cooperative, and adherent with medications other than having difficulty understanding prompts. Patient slept well overnight. VSS. Patient is eating well. Psychotropic PRNs required in the past 24 hours: none. Start Time: 14:20 Stop Time: 14:40 Mental Status Exam Vitals: Last Vital Signs Temp 99.0 F 12/30/16 16:00 Pulse 92 12/30/16 16:00 Resp 18 12/30/16 16:00 BP 143/80 H 12/30/16 16:00 Pulse Ox 98 12/30/16 16:00 Height: 1.57 m Weight: 50.8 kg - Mental Status Exam Muscle Strength/Tone: Normal Dressing: Casual Grooming: Good Attitude: Cooperative Motor Activity: Normal (during interview - paces intermittently through day) Eye Contact: Fair Speech: Slowed, Other (some expressive aphasia suspected) Volume: Soft Rhythm: Mumbled Orientation: Oriented to person Mood: Euthymic Rate of Thoughts: Delayed Thought Organization: Confused Associations: Illogical Abstract Reasoning: Poor abstract reasoning Thought Content: Other (Poverty of thought) Perception/Psychotic: Perception Normal Language: Naming Impaired Fund of Knowledge: Poor fund of knowledge Memory: Poor-immediate, Poor-recent, Poor-remote Suicidal Ideation: None Homicidal Ideation: None Insight: Impaired Judgement: Impaired Impulse Control: Fair - Laboratory Result Diagrams: 12/29/16 06:40 12/29/16 06:40 Assessment and Plan (1) Major neurocognitive disorder Problem details: mixed etiology (Alzheimer's and vascular), moderate, with behavioral disturbance Current visit: Yes Status: Acute Hospital Course Summary Disclaimer: The visit summary below is not to be considered part of the above Progress Note. Hospital Course: 12/13/16 08:03 IMPRESSION Acute psychosis - Paranoia with delusions Mildly elevated LFTs Elevated BP (poss r/t agitation) Dementia JUNIOR PLAN Agree with admission. Labs reviewed and compared with outside records - mild acute elevations in AST/ ALT - monitor - could be r/t med effect since all meds are new to her. BP was elevated last night, though this is when she was agitated - monitor this over the next 24-48 hours to see if she might need an antihypertensive. Check Vit B12 and prealbumin. Provide safe/supportive environment. Medically stable for [facility] activities. code status in chart - DNR - will need to clarify with family. 12/14/16 12:17 Remains confused and agitated at times. Continue current care and will discuss with family use of Depakote 12/15/16 21:17 Remains confused. Increase Seroquel to 50mg PO TID. 12/16/16 IMPRESSION Acute psychosis - Paranoia with delusions Mildly elevated LFTs - RESOLVED Elevated BP (poss r/t agitation) - IMPROVING Dementia JUNIOR PLAN CMP repeated - LFTs back to normal. Vit B12 was 313 which is low-normal. Start replacement. Prealbumin also low at 15.9 - will order nutritional supplements. VS labile ranging 100/63 this am but was 195/85 on 12/13 - cont to monitor. 12/16/16 17:08 Remains confused but a little better today. Continue current care 12/17/16 Psych: Continue current care though apppears patient continues to be impulsive, restless. Will again revisit use of Depakote with family, consider CT scan as she has not had one done per son. 12/18/16 Psych: Patient was aggressive/resistive with cares last night. Will increase Seroquel to 50mg PO BID (AM, afternoon) and 100mg PO q HS to target evening agitation. 12/19/16 Psych: Will increase Seroquel to 50mg in AM, 75mg in afternoon and 100mg q HS. Monitoring orthostatics. Improved with increased HS dose of antipsychotic. 12/20/16 12:00 Slightly improved but remains impulsive and confused with exit seeking behavior. Continue current care 12/21/16 11:12 Remains impulsive and agitated at times with exit seeking behavior 12/22/16 Check BMP and CBC to ensure no underlying rationale for fall. VSS. No obvious neuro deficits. Continue to provide safe environment; monitor post-fall. 12/22/16 Psych: Will switch from Seroquel to Risperdal to minimize any anticholinergic effect - will change to Risperdal 1mg PO BID and monitor response. PLAN-12/23/16: Avni continues to have significant behaviors including exit seeking, agitations and aggressions often requiring PRN medications. Continue psychiatric care per Dr. Knight and team. Seroquel was discontinued and Risperdal was initiated per Dr. Knight. Continue to provide safe and supportive environment. Due to patient's decreased safety awareness, she is at increased risk for falls. Monitor appropriately. CBC and BMP recheck on 12/22/16 and were unremarkable. Continue to monitor periodically throughout admission. UA culture shows no growth after 2 days. Patient remains afebrile. Continue to monitor for signs of infection. Overall, the patient is medically stable. 12/23/16 Psych: Continue current care as just changed to Risperdal last evening. Monitor mood, behavior and response to treatment. Patient continues to be significant fall risk due to impulsivity and relatively high activity level. 12/24/16 Psych: Will ask nursing to try to ensure adherence with antipsychotic as increased behavior this evening likely due to noncompliance. If not possible , may need to schedule IM medication if patient refuses. Asked nurse to give Haldol 1mg IM tonight and hold Risperdal; resume PO Risperdal BID tomorrow morning. 12/25/16 Psych: Discussed care with son/DPOA and agreed to schedule Risperdal 1mg PO daily at 1800. If patient refuses PO medication, she is to be given Haldol 1mg IM instead. He would also like for her to be made a DNR; order entered. Continue care otherwise; monitor patient's mood, behavior and response to treatment. 12/26/16 Psych: Will continue current care for time being - may consider adding on small AM dose of Risperdal if patient has any daytime agitation. 12/27/16 14:34 Agitated and impulsive at times. Will start Risperdal 0.5mg daily 12/28/16 11:06 Agitated yesterday afternoon. Risperdal 0.5mg daily started today 12/29/16 19:08 Better today. Continue current care 12/30/16 Psych: Patient doing significantly better than upon admission - LTC facility will be asked to assess patient for readiness to return to their facility. Continue current care in the interim.
[2016-12-31] MEDS: CYANOCOBALAMIN (B-12) 500mcg TABLET PO SCH (09:02)
[2016-12-31] MEDS: RisperiDONE 0.5 MG TABLET PO SCH (09:02)
[2016-12-31] MEDS: SERTRALINE 50 MG TABLET PO SCH (09:03)
[2016-12-31] MEDS: RisperiDONE 1 MG TABLET PO SCH (17:05)
--- NOTE | 2016-12-31 20:26 | Neuropsych Progress Note ---
[facility] Subjective Date: 12/31/16 - Sujective/Severity of Illness Medications: Acetaminophen (Tylenol) 325 - 650 mg PO Q5H PRN PRN Reason: Discomfort Last Admin: 12/26/16 20:18 Dose: 650 mg Acetaminophen (Tylenol Supp) 650 mg MT Q5H PRN PRN Reason: Pain Carbamide Peroxide (Debrox) 2 drops EACH EAR DAILY PRN PRN Reason: For ear wax removal Cyanocobalamin (Vit. B-12) 500 mcg PO DAILY [facility] Last Admin: 12/31/16 09:02 Dose: 500 mcg Haloperidol (Haldol) 0.5 mg PO Q6H PRN PRN Reason: Extreme agitation Last Admin: 12/22/16 08:24 Dose: 0.5 mg Haloperidol Lactate (Haldol) 1 mg IM 18 PRN Haloperidol Lactate (Haldol) 0.5 mg IM Q6H PRN PRN Reason: Extreme agitation Last Admin: 12/28/16 13:18 Dose: 0.5 mg Lorazepam (Ativan) 0.5 mg PO Q6H PRN PRN Reason: Extreme agitation Last Admin: 12/22/16 08:24 Dose: 0.5 mg Lorazepam (Ativan Inj) 0.5 mg IM Q6H PRN PRN Reason: Extreme agitation Last Admin: 12/28/16 13:18 Dose: 0.5 mg Magnesium Hydroxide (Mom) 30 ml PO DAILY PRN PRN Reason: Constipation Last Admin: 12/31/16 14:21 Dose: 30 ml Metoprolol Tartrate (Lopressor) 12.5 mg PO BIDWM [facility] Last Admin: 12/31/16 17:04 Dose: 12.5 mg Risperidone (Risperdal) 1 mg PO 18 [facility] Last Admin: 12/31/16 17:05 Dose: 1 mg Risperidone (Risperdal) 0.5 mg PO DAILY [facility] Last Admin: 12/31/16 09:02 Dose: 0.5 mg Sertraline HCl (Zoloft) 50 mg PO QAM [facility] Last Admin: 12/31/16 09:03 Dose: 50 mg Subjective: Patient seen and chart reviewed. Case discussed with treatment team. On interview, patient is pleasantly confused, and calm throughout conversation. She is sitting in dayroom "socializing" with staff and has been able to sit for longer periods, playing cards or games. Today, she is quite occupied with [employer]. Patient denies any SI, HI or AVH. Patient denies any adverse side effects related to psychotropic medications. Nursing staff report patient has been more calm and cooperative, and adherent with medications other than having difficulty understanding prompts. Patient slept well overnight. VSS. Patient is eating well. Psychotropic PRNs required in the past 24 hours: none. Start Time: 13:00 Stop Time: 13:20 Mental Status Exam Vitals: Last Vital Signs Temp 98.4 F 12/31/16 19:46 Pulse 83 12/31/16 19:46 Resp 20 12/31/16 19:46 BP 166/87 H 12/31/16 19:46 Pulse Ox 95 12/31/16 19:46 Height: 1.57 m Weight: 50.8 kg - Mental Status Exam Muscle Strength/Tone: Normal Dressing: Casual Grooming: Good Attitude: Cooperative Motor Activity: Normal (during interview - paces intermittently through day) Eye Contact: Fair Speech: Slowed, Other (some expressive aphasia suspected) Volume: Soft Rhythm: Mumbled Orientation: Oriented to person Mood: Euthymic Rate of Thoughts: Delayed Thought Organization: Confused Associations: Illogical Abstract Reasoning: Poor abstract reasoning Thought Content: Other (Poverty of thought) Perception/Psychotic: Perception Normal Language: Naming Impaired Fund of Knowledge: Poor fund of knowledge Memory: Poor-immediate, Poor-recent, Poor-remote Suicidal Ideation: None Homicidal Ideation: None Insight: Impaired Judgement: Impaired Impulse Control: Fair - Laboratory Result Diagrams: 12/29/16 06:40 12/29/16 06:40 Assessment and Plan (1) Major neurocognitive disorder Problem details: mixed etiology (Alzheimer's and vascular), moderate, with behavioral disturbance Current visit: Yes Status: Acute Hospital Course Summary Disclaimer: The visit summary below is not to be considered part of the above Progress Note. Hospital Course: 12/13/16 08:03 IMPRESSION Acute psychosis - Paranoia with delusions Mildly elevated LFTs Elevated BP (poss r/t agitation) Dementia JUNIOR PLAN Agree with admission. Labs reviewed and compared with outside records - mild acute elevations in AST/ ALT - monitor - could be r/t med effect since all meds are new to her. BP was elevated last night, though this is when she was agitated - monitor this over the next 24-48 hours to see if she might need an antihypertensive. Check Vit B12 and prealbumin. Provide safe/supportive environment. Medically stable for [facility] activities. code status in chart - DNR - will need to clarify with family. 12/14/16 12:17 Remains confused and agitated at times. Continue current care and will discuss with family use of Depakote 12/15/16 21:17 Remains confused. Increase Seroquel to 50mg PO TID. 12/16/16 IMPRESSION Acute psychosis - Paranoia with delusions Mildly elevated LFTs - RESOLVED Elevated BP (poss r/t agitation) - IMPROVING Dementia JUNIOR PLAN CMP repeated - LFTs back to normal. Vit B12 was 313 which is low-normal. Start replacement. Prealbumin also low at 15.9 - will order nutritional supplements. VS labile ranging 100/63 this am but was 195/85 on 12/13 - cont to monitor. 12/16/16 17:08 Remains confused but a little better today. Continue current care 12/17/16 Psych: Continue current care though apppears patient continues to be impulsive, restless. Will again revisit use of Depakote with family, consider CT scan as she has not had one done per son. 12/18/16 Psych: Patient was aggressive/resistive with cares last night. Will increase Seroquel to 50mg PO BID (AM, afternoon) and 100mg PO q HS to target evening agitation. 12/19/16 Psych: Will increase Seroquel to 50mg in AM, 75mg in afternoon and 100mg q HS. Monitoring orthostatics. Improved with increased HS dose of antipsychotic. 12/20/16 12:00 Slightly improved but remains impulsive and confused with exit seeking behavior. Continue current care 12/21/16 11:12 Remains impulsive and agitated at times with exit seeking behavior 12/22/16 Check BMP and CBC to ensure no underlying rationale for fall. VSS. No obvious neuro deficits. Continue to provide safe environment; monitor post-fall. 12/22/16 Psych: Will switch from Seroquel to Risperdal to minimize any anticholinergic effect - will change to Risperdal 1mg PO BID and monitor response. PLAN-12/23/16: Avni continues to have significant behaviors including exit seeking, agitations and aggressions often requiring PRN medications. Continue psychiatric care per Dr. Knight and team. Seroquel was discontinued and Risperdal was initiated per Dr. Knight. Continue to provide safe and supportive environment. Due to patient's decreased safety awareness, she is at increased risk for falls. Monitor appropriately. CBC and BMP recheck on 12/22/16 and were unremarkable. Continue to monitor periodically throughout admission. UA culture shows no growth after 2 days. Patient remains afebrile. Continue to monitor for signs of infection. Overall, the patient is medically stable. 12/23/16 Psych: Continue current care as just changed to Risperdal last evening. Monitor mood, behavior and response to treatment. Patient continues to be significant fall risk due to impulsivity and relatively high activity level. 12/24/16 Psych: Will ask nursing to try to ensure adherence with antipsychotic as increased behavior this evening likely due to noncompliance. If not possible , may need to schedule IM medication if patient refuses. Asked nurse to give Haldol 1mg IM tonight and hold Risperdal; resume PO Risperdal BID tomorrow morning. 12/25/16 Psych: Discussed care with son/DPOA and agreed to schedule Risperdal 1mg PO daily at 1800. If patient refuses PO medication, she is to be given Haldol 1mg IM instead. He would also like for her to be made a DNR; order entered. Continue care otherwise; monitor patient's mood, behavior and response to treatment. 12/26/16 Psych: Will continue current care for time being - may consider adding on small AM dose of Risperdal if patient has any daytime agitation. 12/27/16 14:34 Agitated and impulsive at times. Will start Risperdal 0.5mg daily 12/28/16 11:06 Agitated yesterday afternoon. Risperdal 0.5mg daily started today 12/29/16 19:08 Better today. Continue current care 12/30/16 Psych: Patient doing significantly better than upon admission - LTC facility will be asked to assess patient for readiness to return to their facility. Continue current care in the interim. 12/31/16 Psych: Patient continues to do quite well - will discuss discharge planning further with SW and family. No medication changes.
[2017-01-01] MEDS: ACETAMINOPHEN 325 MG TABLET PO PRN (03:12)
[2017-01-01] MEDS: RisperiDONE 0.5 MG TABLET PO SCH ×2 (07:53→09:40)
[2017-01-01] MEDS: CYANOCOBALAMIN (B-12) 500mcg TABLET PO SCH ×2 (07:53→09:40)
[2017-01-01] MEDS: SERTRALINE 50 MG TABLET PO SCH ×2 (07:53→09:40)
[2017-01-01] MEDS ORDERED: KETOROLAC 15 MG/ML INJECTION IM ONE (08:36)
[2017-01-01 09:02] VITALS: BP 124/69; PULSE 102; RESP 16; TEMP 97.1; O2SAT 99
== END 2017-01-01 15:25 | disposition home or self-care (01) | DRG 57 ==
LOC: ED 16:55 → GEN 18:38
PROVIDERS: ADMIT Psychiatry & Neurology Psychiatry; ATTEND Psychiatry & Neurology Psychiatry